=== PATIENT | female | born 1945 | race African-American/Black ===

== ENCOUNTER 2017-01-23 13:48 | Inpatient (IN) | payer MEDICARE, MEDICAID ==
[~2017-01-23] VITALS: Ht 165.1 cm; Wt 79.9 kg
[~2017-01-23 13:48] MED LIST: ACET-2708 PO; ALBU90AE IH; BUDE6HFA INH; DOCU-150 PO; FLUT16SP15 NS; HYDR25TA PO; NITR0.4T SL; PANT40TA4 PO; TOLT4CAP PO; TRAM50TA3 PO; ZET10 PO
[2017-01-23] MEDS ORDERED: ASPIRIN 81MG TABLET PO ONE (14:30)
[2017-01-23] MEDS ORDERED: NITROGLYCERIN 0.4MG TABLET SL SL PRN (14:30)
[2017-01-23 14:46] LABS: BASOPHILS % 0.7 % (0.0-2.0); EOSINOPHILS % 2.7 % (0.0-5.0); HEMATOCRIT. 31.4 % (36.0-48.0); HEMOGLOBIN. 10.7 g/dL (12.0-16.0); INR 1.1; LYMPHOCYTES % 29.7 % (20.0-50.0); MEAN CORPUSCULAR HEMOGLOBIN 31.3 pg (28.0-32.0); MEAN CORPUSCULAR VOLUME 92.3 fL (81.0-99.0); MEAN PLATELET VOLUME 7.3 fl (7.4-10.4); MONOCYTES % 7.6 % (2.0-8.0); NEUTROPHILS % 59.3 % (40.0-76.0); PLATELET 349 x1000/uL (130-400); PROTHROMBIN TIME 11.3 sec (9.4-11.6); RED BLOOD CELL COUNT 3.41 mill/uL (4.2-5.4); RED CELL DISTRIBUTION WIDTH 13.9 % (11.6-14.6)
[2017-01-23 14:57] LABS: CARBON DIOXIDE 26 mEq/L (21-32); CHLORIDE 102 mEq/L (98-107); TROPONIN I < 0.02 ng/mL (0.00-0.04)
[2017-01-23 20:00] VITALS: BP_SYST 130; BP_DIAS 47; BP_DIAS 64
[2017-01-23] MEDS ORDERED: MORPHINE SULFATE 4 MG/ML CPJ (NOT FOR IM USE) IV PRN (22:00)
[2017-01-23 23:36] LABS: TROPONIN I < 0.02 ng/mL (0.00-0.04)
[2017-01-24] VITALS: BP 143/57
[2017-01-24] MEDS: IPRATROPIUM/ALBUTEROL 0.5-3(2.5)MG/3ML NEB HHN SCH ×3 (00:34→20:26)
[2017-01-24 04:00] VITALS: BP 117/45
[2017-01-24 07:27] LABS: BASOPHILS % 0.9 % (0.0-2.0); EOSINOPHILS % 2.6 % (0.0-5.0); HEMATOCRIT. 29.9 % (36.0-48.0); LYMPHOCYTES % 40.9 % (20.0-50.0); MEAN CORPUSCULAR VOLUME 92.6 fL (81.0-99.0); MEAN PLATELET VOLUME 7.3 fl (7.4-10.4); MONOCYTES % 9.3 % (2.0-8.0); NEUTROPHILS % 46.3 % (40.0-76.0); PLATELET 324 x1000/uL (130-400); RED BLOOD CELL COUNT 3.23 mill/uL (4.2-5.4); RED CELL DISTRIBUTION WIDTH 13.9 % (11.6-14.6)
[2017-01-24 08:00] VITALS: BP 137/56
[2017-01-24] MEDS: ENOXAPARIN 40MG/0.4ML SYR SUBCUT SCH (08:31)
[2017-01-24] MEDS: ONDANSETRON HCL 4MG/2ML VIAL IV PRN (08:31)
[2017-01-24] MEDS: HYDROCHLOROTHIAZIDE 25MG TABLET PO SCH (08:32)
[2017-01-24 08:45] LABS: CARBON DIOXIDE 26 mEq/L (21-32); CHLORIDE 102 mEq/L (98-107); CREATINE KINASE MB FRACTION 1.3 ng/mL (0.5-3.6); HDL CHOLESTEROL 53 mg/dL (40-59); LDL CHOLESTEROL 129 mg/dL (5-100); TROPONIN I < 0.02 ng/mL (0.00-0.04)
[2017-01-24] MEDS ORDERED: ASPIRIN 81MG TABLET PO SCH (09:00)
[2017-01-24 12:49] VITALS: BP 114/58
[2017-01-24] MEDS ORDERED: SODIUM CHLORIDE 0.9% 1,000 ML IV SCH (14:15)
[2017-01-24 16:20] VITALS: BP 119/57
[2017-01-24 17:43] LABS: CREATINE KINASE MB FRACTION 0.7 ng/mL (0.5-3.6); TROPONIN I < 0.02 ng/mL (0.00-0.04)
[2017-01-24 20:00] VITALS: BP 103/57
[2017-01-25] VITALS: BP 125/63
[2017-01-25] MEDS: IPRATROPIUM/ALBUTEROL 0.5-3(2.5)MG/3ML NEB HHN SCH ×4 (00:49→19:45)
[2017-01-25 01:51] LABS: CREATINE KINASE MB FRACTION 0.9 ng/mL (0.5-3.6); TROPONIN I < 0.02 ng/mL (0.00-0.04)
[2017-01-25] MEDS: DIPHENHYDRAMINE 50MG/ML VIAL IM PRN ×2 (03:53→23:15)
[2017-01-25 06:00] VITALS: BP 121/53
[2017-01-25 08:00] VITALS: BP 117/58
[2017-01-25] MEDS: ENOXAPARIN 40MG/0.4ML SYR SUBCUT SCH (08:29)
[2017-01-25] MEDS: HYDROCHLOROTHIAZIDE 25MG TABLET PO SCH (08:29)
[2017-01-25] MEDS: DOCUSATE SODIUM 100MG CAPSULE PO SCH ×2 (11:43→18:19)
[2017-01-25] MEDS ORDERED: REGADENOSON 0.4 MG/5 ML IV NR (12:00)
[2017-01-25 12:15] VITALS: BP 128/52
[2017-01-25 16:23] VITALS: BP 113/60
[2017-01-25 20:00] VITALS: BP 121/68
[2017-01-26] VITALS (7 sets, daily range): BP systolic 111–135; BP diastolic 51–69
[2017-01-26] MEDS: IPRATROPIUM/ALBUTEROL 0.5-3(2.5)MG/3ML NEB HHN SCH ×3 (02:53→14:19)
[2017-01-26] MEDS ORDERED: REGADENOSON 0.4 MG/5 ML IV ONE (08:36)
[2017-01-26] MEDS: ONDANSETRON HCL 4MG/2ML VIAL IV PRN (09:49)
[2017-01-26] MEDS: DOCUSATE SODIUM 100MG CAPSULE PO SCH ×2 (09:49→17:00)
[2017-01-26] MEDS: HYDROCHLOROTHIAZIDE 25MG TABLET PO SCH (09:49)
[2017-01-26] MEDS: ENOXAPARIN 40MG/0.4ML SYR SUBCUT SCH (09:50)
== END 2017-01-26 19:05 | disposition home or self-care (01) | DRG 206 ==
LOC: ER 13:57 → 5WST 15:43 → ENRESERV 16:43
PROVIDERS: ADMIT Internal Medicine; ATTEND Internal Medicine
DX: M94.0 Chondrocostal junction syndrome [Tietze] (principal); J44.9 Chronic obstructive pulmonary disease, unspecified; I10 Essential (primary) hypertension; I25.10 Atherosclerotic heart disease of native coronary artery without angina pectoris; Z66 Do not resuscitate; D64.9 Anemia, unspecified; M54.30 Sciatica, unspecified side; M19.90 Unspecified osteoarthritis, unspecified site; E78.5 Hyperlipidemia, unspecified; G89.29 Other chronic pain; E78.00 Pure hypercholesterolemia, unspecified; Z90.710 Acquired absence of both cervix and uterus; Z82.49 Family history of ischemic heart disease and other diseases of the circulatory system; Z88.6 Allergy status to analgesic agent; Z86.73 Personal history of transient ischemic attack (TIA), and cerebral infarction without residual deficits; Z88.5 Allergy status to narcotic agent; Z88.0 Allergy status to penicillin; Z88.1 Allergy status to other antibiotic agents; Z91.041 Radiographic dye allergy status; Z79.1 Long term (current) use of non-steroidal anti-inflammatories (NSAID); Z79.899 Other long term (current) drug therapy
CPT/HCPCS: 36415; 71010; 78452; 78582; 80053; 80061; 82553; 83036; 83880; 84443; 84484; 85025; 85610; 93005; 93017; 93306; 94640; 99285; A9500; A9558; J1200; J1650; J2270; J2405; J2785; J7620

== ENCOUNTER 2017-09-02 14:31 | Emergency (ER) | payer MEDICARE, MEDICAID ==
[~2017-09-02] VITALS: Ht 162.6 cm; Wt 60.0 kg
[2017-09-02] MEDS ORDERED: MORPHINE SULFATE 4 MG/ML CPJ (NOT FOR IM USE) IV STA (15:57)
[2017-09-02] MEDS ORDERED: ONDANSETRON HCL 4MG/2ML VIAL IV STA (15:57)
[2017-09-02 16:30] LABS: CLARITY URINE CLEAR (CLEAR); COLOR URINE YELLOW (YELLOW); KETONES URINE NEGATIVE (NEGATIVE); LEUKOCYTE ESTERASE URINE NEGATIVE (NEGATIVE); NITRITE URINE NEGATIVE (NEGATIVE); OCCULT BLOOD URINE TRACE (NEGATIVE); PH URINE 6.5 (4.5-8.0); PROTEIN URINE NEGATIVE (NEGATIVE); SPECIFIC GRAVITY URINE 1.009 (1.005-1.030); UROBILINOGEN URINE 0.2 E.U./dL (0.2-1.0)
[2017-09-02 16:38] LABS: BASOPHILS % 0.9 % (0.0-2.0); EOSINOPHILS % 1.8 % (0.0-5.0); HEMATOCRIT. 29.8 % (36.0-48.0); HEMOGLOBIN. 10.2 g/dL (12.0-16.0); LYMPHOCYTES % 17.2 % (20.0-50.0); MEAN CORPUSCULAR HEMOGLOBIN 31.3 pg (28.0-32.0); MEAN CORPUSCULAR VOLUME 91.7 fL (81.0-99.0); MEAN PLATELET VOLUME 6.8 fl (7.4-10.4); MONOCYTES % 6.8 % (2.0-8.0); NEUTROPHILS % 73.3 % (40.0-76.0); PLATELET 415 x1000/uL (130-400); RED BLOOD CELL COUNT 3.25 mill/uL (4.2-5.4); RED CELL DISTRIBUTION WIDTH 13.7 % (11.6-14.6)
[2017-09-02 16:43] LABS: CHLORIDE 100 mEq/L (98-107)
[2017-09-02 16:44] LABS: INR 1.1; PROTHROMBIN TIME 11.3 sec (9.4-11.6)
[2017-09-02] MEDS ORDERED: CALCIUM GLUCONATE 100MG/ML 10ML VIAL IV ONE (21:45)
[2017-09-02] MEDS ORDERED: MAGNESIUM 2 G PREMIX 50 ML IV ONE (22:00)
[2017-09-03 00:49] VITALS: BP 142/75
== END 2017-09-03 00:51 | disposition home or self-care (01) ==
LOC: ER 14:31 → ENRESERV 23:49 → CANRESERV 23:49 → CANBEDREQ 09-03 00:30 → ER 09-03 00:51
DX: R10.84 Generalized abdominal pain (principal); E83.51 Hypocalcemia; E78.00 Pure hypercholesterolemia, unspecified; J44.9 Chronic obstructive pulmonary disease, unspecified; I10 Essential (primary) hypertension; I25.2 Old myocardial infarction; Z88.6 Allergy status to analgesic agent; Z88.8 Allergy status to other drugs, medicaments and biological substances; Z88.0 Allergy status to penicillin; Z86.73 Personal history of transient ischemic attack (TIA), and cerebral infarction without residual deficits
CPT/HCPCS: 36415; 74176; 80053; 81003; 82330; 83690; 83735; 85025; 85610; 96365; 96375; 99285; J0610; J2270; J2405; J3475

== ENCOUNTER 2017-10-20 20:58 | Emergency (ER) | payer MEDICARE, MEDICAID ==
[~2017-10-20] VITALS: Ht 154.9 cm; Wt 91.0 kg
[2017-10-20] MEDS ORDERED: HYDROCODONE/ACETAMINOPHEN 5/325MG TABLET PO STA (22:24)
[2017-10-21 04:02] VITALS: BP 133/70
== END 2017-10-21 04:15 | disposition home or self-care (01) ==
LOC: ER 20:58
DX: M79.606 Pain in leg, unspecified (principal); M79.1 Myalgia; J44.9 Chronic obstructive pulmonary disease, unspecified; I25.2 Old myocardial infarction; E78.00 Pure hypercholesterolemia, unspecified; I10 Essential (primary) hypertension; Z88.0 Allergy status to penicillin; Z88.1 Allergy status to other antibiotic agents; Z88.3 Allergy status to other anti-infective agents; Z88.6 Allergy status to analgesic agent; Z88.8 Allergy status to other drugs, medicaments and biological substances; Z86.73 Personal history of transient ischemic attack (TIA), and cerebral infarction without residual deficits; Z98.51 Tubal ligation status; Z90.710 Acquired absence of both cervix and uterus; Z91.018 Allergy to other foods
CPT/HCPCS: 72170; 73552; 73562; 73590; 99284

== ENCOUNTER 2018-03-06 01:43 | Inpatient (IN) | payer MEDICARE, MEDICAID ==
[~2018-03-06] VITALS: Ht 154.9 cm; Wt 87.6 kg
[2018-03-06] MEDS ORDERED: ACETAMINOPHEN 325MG TABLET PO ONE (06:15)
[2018-03-06 06:49] LABS: BASOPHILS % 0.4 % (0.0-2.0); EOSINOPHILS % 0.2 % (0.0-5.0); HEMATOCRIT. 32.4 % (36.0-48.0); HEMOGLOBIN. 10.8 g/dL (12.0-16.0); LYMPHOCYTES % 7.3 % (20.0-50.0); MEAN CORPUSCULAR HEMOGLOBIN 31.6 pg (28.0-32.0); MEAN CORPUSCULAR VOLUME 95.3 fL (81.0-99.0); MONOCYTES % 5.4 % (2.0-8.0); NEUTROPHILS % 86.7 % (40.0-76.0); RED CELL DISTRIBUTION WIDTH 13.8 % (11.6-14.6)
[2018-03-06 07:03] LABS: CHLORIDE 93 mEq/L (98-107)
[2018-03-06] MEDS ORDERED: LIDOCAINE HCL/PF 1% 10 MG/ML 5ML VIAL IJ ONE (08:00)
[2018-03-06] MEDS ORDERED: BACITRACIN ZINC OINT UDPKT TOP ONE (08:00)
[2018-03-06] MEDS ORDERED: TETANUS, DIPHTHERIA, PERTUSSIS VAC/PF 0.5ML (>7YR OLD) IM ONE (08:00)
[2018-03-06 09:02] LABS: PLATELET 286 x1000/uL (130-400)
[2018-03-06 09:46] LABS: CLARITY URINE CLEAR (CLEAR); COLOR URINE YELLOW (YELLOW); KETONES URINE NEGATIVE (NEGATIVE); LEUKOCYTE ESTERASE URINE NEGATIVE (NEGATIVE); NITRITE URINE NEGATIVE (NEGATIVE); OCCULT BLOOD URINE NEGATIVE (NEGATIVE); PROTEIN URINE NEGATIVE (NEGATIVE); SPECIFIC GRAVITY URINE 1.004 (1.005-1.030); UROBILINOGEN URINE 0.2 E.U./dL (0.2-1.0)
[2018-03-06] MEDS ORDERED: NEO/POLYMYX B SULF/DEXAMETH OPHTH OINT 3.5GM ONE (10:20)
[2018-03-06] MEDS ORDERED: PREDNISOLONE ACETATE 1% OPHTH DROPS 1ML ONE (10:20)
[2018-03-06] MEDS ORDERED: BUPIVACAINE HCL/PF 0.75% (7.5MG/ML) 10ML ONE (10:20)
[2018-03-06] MEDS ORDERED: CIPROFLOXACIN 0.3% OPHTH SOLN 2.5ML ONE (10:20)
[2018-03-06] MEDS ORDERED: BALANCED SALT IRRIG SOLN 15ML ONE (10:20)
[2018-03-06] MEDS ORDERED: TETRACAINE 0.5% OPHTH DROPS 4ML ONE (10:20)
[2018-03-06] MEDS ORDERED: LIDOCAINE HCL 2%/EPINEPHRINE 1:100,000 20 ML VIAL INFIL ONE (10:20)
[2018-03-06 12:00] VITALS: BP 128/74
[2018-03-06 12:03] VITALS: BP 119/66
[2018-03-06 12:05] VITALS: BP 131/52
[2018-03-06] MEDS ORDERED: MAGNESIUM/ALUMINUM HYDROXIDE/SIMETHICONE 30ML UDC PO PRN (12:45)
[2018-03-06] MEDS ORDERED: ONDANSETRON HCL 4MG/2ML INJ IV PRN ×2 (12:45→13:45)
[2018-03-06] MEDS ORDERED: IPRATROPIUM/ALBUTEROL 0.5-3(2.5)MG/3ML NEB INH PRN (12:45)
[2018-03-06] MEDS ORDERED: CLONIDINE 0.1MG TABLET PO PRN (12:45)
[2018-03-06] MEDS ORDERED: TRAMADOL 50MG TABLET PO PRN (12:45)
[2018-03-06] MEDS ORDERED: HYDROMORPHONE HCL/PF 2MG/ML CPJ IV PRN (13:45)
[2018-03-06] MEDS ORDERED: MIDAZOLAM HCL 2 MG/2 ML VIAL ONE (14:05)
[2018-03-06] MEDS ORDERED: FENTANYL CITRATE/PF 50MCG/ML 2ML VIAL ONE (14:05)
[2018-03-06] MEDS ORDERED: PROPOFOL 200MG/20ML VIAL IV ONE (14:06)
[2018-03-06 16:00] VITALS: BP_SYST 144; BP_SYST 147; BP_DIAS 66
[2018-03-06] MEDS ORDERED: MORPHINE SULFATE 4 MG/ML CPJ (NOT FOR IM USE) IV PRN (17:30)
[2018-03-06] MEDS ORDERED: IPRATROPIUM/ALBUTEROL 0.5-3(2.5)MG/3ML NEB HHN PRN (18:00)
[2018-03-06] MEDS ORDERED: MEDICATION NOT ON FORMULARY EA (Pantoprazole Sodium 1 TAB) PO SCH (18:00)
[2018-03-06] MEDS ORDERED: EZETIMIBE 10MG TABLET PO SCH (18:00)
[2018-03-06] MEDS ORDERED: TOLTERODINE TARTRATE PO SCH (18:00)
[2018-03-06] MEDS ORDERED: HYDROCHLOROTHIAZIDE 25MG TABLET PO SCH (18:00)
[2018-03-06] MEDS: OXYBUTYNIN CHLORIDE 5MG TABLET PO SCH (18:57)
[2018-03-06] MEDS: EZETIMIBE 10MG TABLET PO SCH (18:58)
[2018-03-06] MEDS: PANTOPRAZOLE SODIUM 40 MG/VIAL IV SCH (18:58)
[2018-03-06] MEDS: HYDROCHLOROTHIAZIDE 25MG TABLET PO SCH (18:58)
[2018-03-06] MEDS: ENOXAPARIN 40MG/0.4ML SYR SUBCUT SCH (18:59)
[2018-03-06] MEDS: SODIUM CHLORIDE 0.9% INJ 3ML FLUSH IVF SCH ×2 (19:04→20:58)
[2018-03-06 20:00] VITALS: BP 127/47
[2018-03-06] MEDS: IPRATROPIUM/ALBUTEROL 0.5-3(2.5)MG/3ML NEB HHN SCH (20:30)
[2018-03-06] MEDS: ACETAMINOPHEN 325MG TABLET PO SCH (20:58)
[2018-03-06] MEDS ORDERED: PNEUMOCOCCAL 23-VAL P-SAC VAC 0.5 ML IM ONE (21:30)
[2018-03-07] VITALS (9 sets, daily range): BP systolic 106–129; BP diastolic 50–66
[2018-03-07] MEDS: IPRATROPIUM/ALBUTEROL 0.5-3(2.5)MG/3ML NEB HHN SCH ×4 (02:30→20:56)
[2018-03-07] MEDS: SODIUM CHLORIDE 0.9% INJ 3ML FLUSH IVF SCH ×3 (06:34→21:30)
[2018-03-07 07:04] LABS: BASOPHILS % 0.5 % (0.0-2.0); HEMATOCRIT. 27.2 % (36.0-48.0); HEMOGLOBIN. 9.4 g/dL (12.0-16.0); LYMPHOCYTES % 15.7 % (20.0-50.0); MEAN CORPUSCULAR HEMOGLOBIN 32.8 pg (28.0-32.0); MEAN CORPUSCULAR VOLUME 94.7 fL (81.0-99.0); MEAN PLATELET VOLUME 6.7 fl (7.4-10.4); MONOCYTES % 7.6 % (2.0-8.0); NEUTROPHILS % 75.2 % (40.0-76.0); PLATELET 317 x1000/uL (130-400); RED BLOOD CELL COUNT 2.88 mill/uL (4.2-5.4)
[2018-03-07 07:32] LABS: CHLORIDE 96 mEq/L (98-107)
[2018-03-07] MEDS: BUDESONIDE 0.5MG/2ML NEB HHN SCH ×2 (08:12→20:56)
[2018-03-07] MEDS: OXYBUTYNIN CHLORIDE 5MG TABLET PO SCH ×3 (09:08→18:23)
[2018-03-07] MEDS: EZETIMIBE 10MG TABLET PO SCH (09:08)
[2018-03-07] MEDS: HYDROCHLOROTHIAZIDE 25MG TABLET PO SCH (09:09)
[2018-03-07] MEDS: ACETAMINOPHEN 325MG TABLET PO SCH ×3 (09:11→18:24)
[2018-03-07] MEDS: PANTOPRAZOLE SODIUM 40 MG/VIAL IV SCH (09:25)
[2018-03-07] MEDS: GENTAMICIN 0.3% OPHTH DROPS 5ML LEFTEYE SCH ×4 (11:49→23:59)
[2018-03-07] MEDS ORDERED: POTASSIUM CHLORIDE 20MEQ TABLET SR PO SCH (12:15)
[2018-03-07] MEDS: NEO/POLYMYX B SULF/DEXAMETH OPHTH OINT 3.5GM LEFTEYE SCH ×2 (14:23→22:13)
[2018-03-07] MEDS: ENOXAPARIN 40MG/0.4ML SYR SUBCUT SCH (14:25)
[2018-03-08] VITALS (7 sets, daily range): BP systolic 98–143; BP diastolic 43–71
[2018-03-08] MEDS: IPRATROPIUM/ALBUTEROL 0.5-3(2.5)MG/3ML NEB HHN SCH ×4 (02:05→19:36)
[2018-03-08] MEDS: SODIUM CHLORIDE 0.9% INJ 3ML FLUSH IVF SCH ×3 (05:53→21:04)
[2018-03-08] MEDS: GENTAMICIN 0.3% OPHTH DROPS 5ML LEFTEYE SCH ×5 (05:53→20:00)
[2018-03-08] MEDS: NEO/POLYMYX B SULF/DEXAMETH OPHTH OINT 3.5GM LEFTEYE SCH ×2 (06:05→14:25)
[2018-03-08 07:09] LABS: BASOPHILS % 0.8 % (0.0-2.0); EOSINOPHILS % 4.3 % (0.0-5.0); HEMATOCRIT. 26.6 % (36.0-48.0); HEMOGLOBIN. 9.2 g/dL (12.0-16.0); LYMPHOCYTES % 25.3 % (20.0-50.0); MEAN CORPUSCULAR HEMOGLOBIN 32.2 pg (28.0-32.0); MEAN CORPUSCULAR VOLUME 93.3 fL (81.0-99.0); MEAN PLATELET VOLUME 6.9 fl (7.4-10.4); NEUTROPHILS % 59.6 % (40.0-76.0); PLATELET 322 x1000/uL (130-400); RED BLOOD CELL COUNT 2.86 mill/uL (4.2-5.4); RED CELL DISTRIBUTION WIDTH 13.2 % (11.6-14.6)
[2018-03-08] MEDS: BUDESONIDE 0.5MG/2ML NEB HHN SCH ×3 (07:30→20:00)
[2018-03-08] MEDS: ACETAMINOPHEN 325MG TABLET PO SCH ×3 (09:00→19:15)
[2018-03-08] MEDS: EZETIMIBE 10MG TABLET PO SCH (09:05)
[2018-03-08] MEDS: OXYBUTYNIN CHLORIDE 5MG TABLET PO SCH ×3 (09:05→18:41)
[2018-03-08] MEDS: HYDROCHLOROTHIAZIDE 25MG TABLET PO SCH (09:05)
[2018-03-08] MEDS: PANTOPRAZOLE SODIUM 40 MG/VIAL IV SCH (09:06)
[2018-03-08] MEDS: ENOXAPARIN 40MG/0.4ML SYR SUBCUT SCH (14:25)
[2018-03-09] VITALS (9 sets, daily range): BP systolic 100–153; BP diastolic 50–100
[2018-03-09] MEDS: IPRATROPIUM/ALBUTEROL 0.5-3(2.5)MG/3ML NEB HHN SCH ×4 (00:38→20:00)
[2018-03-09] MEDS: NEO/POLYMYX B SULF/DEXAMETH OPHTH OINT 3.5GM LEFTEYE SCH ×4 (06:50→21:08)
[2018-03-09] MEDS: GENTAMICIN 0.3% OPHTH DROPS 5ML LEFTEYE SCH ×7 (06:51→23:29)
[2018-03-09] MEDS: SODIUM CHLORIDE 0.9% INJ 3ML FLUSH IVF SCH ×3 (06:53→21:08)
[2018-03-09 07:23] LABS: BASOPHILS % 0.8 % (0.0-2.0); EOSINOPHILS % 6.7 % (0.0-5.0); HEMATOCRIT. 27.2 % (36.0-48.0); HEMOGLOBIN. 9.3 g/dL (12.0-16.0); LYMPHOCYTES % 23.7 % (20.0-50.0); MEAN CORPUSCULAR HEMOGLOBIN 32.2 pg (28.0-32.0); MEAN CORPUSCULAR VOLUME 94.4 fL (81.0-99.0); MEAN PLATELET VOLUME 6.8 fl (7.4-10.4); MONOCYTES % 12.2 % (2.0-8.0); NEUTROPHILS % 56.6 % (40.0-76.0); PLATELET 334 x1000/uL (130-400); RED BLOOD CELL COUNT 2.88 mill/uL (4.2-5.4); RED CELL DISTRIBUTION WIDTH 13.6 % (11.6-14.6)
[2018-03-09] MEDS: ACETAMINOPHEN 325MG TABLET PO SCH ×3 (09:00→18:35)
[2018-03-09] MEDS: BUDESONIDE 0.5MG/2ML NEB HHN SCH (09:13)
[2018-03-09] MEDS: PANTOPRAZOLE SODIUM 40 MG/VIAL IV SCH (10:14)
[2018-03-09] MEDS: EZETIMIBE 10MG TABLET PO SCH (10:14)
[2018-03-09] MEDS: OXYBUTYNIN CHLORIDE 5MG TABLET PO SCH ×3 (10:14→18:35)
[2018-03-09] MEDS: ENOXAPARIN 40MG/0.4ML SYR SUBCUT SCH (14:11)
[2018-03-09] MEDS ORDERED: GUAIFENESIN-DM 200MG-20MG/10ML UDC PO PRN (16:30)
[2018-03-10] VITALS (7 sets, daily range): BP systolic 109–130; BP diastolic 52–65
[2018-03-10] MEDS: IPRATROPIUM/ALBUTEROL 0.5-3(2.5)MG/3ML NEB HHN SCH ×3 (01:08→14:17)
[2018-03-10] MEDS: GENTAMICIN 0.3% OPHTH DROPS 5ML LEFTEYE SCH ×4 (05:01→16:17)
[2018-03-10] MEDS: SODIUM CHLORIDE 0.9% INJ 3ML FLUSH IVF SCH ×2 (05:31→14:39)
[2018-03-10] MEDS: NEO/POLYMYX B SULF/DEXAMETH OPHTH OINT 3.5GM LEFTEYE SCH ×2 (05:32→14:00)
[2018-03-10 07:41] LABS: BASOPHILS % 1.1 % (0.0-2.0); EOSINOPHILS % 8.5 % (0.0-5.0); HEMATOCRIT. 26.4 % (36.0-48.0); HEMOGLOBIN. 9.2 g/dL (12.0-16.0); LYMPHOCYTES % 30.6 % (20.0-50.0); MEAN CORPUSCULAR HEMOGLOBIN 32.5 pg (28.0-32.0); MEAN CORPUSCULAR VOLUME 93.4 fL (81.0-99.0); MEAN PLATELET VOLUME 6.7 fl (7.4-10.4); MONOCYTES % 14.5 % (2.0-8.0); NEUTROPHILS % 45.3 % (40.0-76.0); PLATELET 365 x1000/uL (130-400); RED BLOOD CELL COUNT 2.83 mill/uL (4.2-5.4); RED CELL DISTRIBUTION WIDTH 13.6 % (11.6-14.6)
[2018-03-10] MEDS: OXYBUTYNIN CHLORIDE 5MG TABLET PO SCH ×2 (08:29→13:00)
[2018-03-10] MEDS: PANTOPRAZOLE SODIUM 40 MG/VIAL IV SCH (08:29)
[2018-03-10] MEDS: ACETAMINOPHEN 325MG TABLET PO SCH ×2 (08:29→13:00)
[2018-03-10] MEDS: EZETIMIBE 10MG TABLET PO SCH (09:00)
[2018-03-10] MEDS: ENOXAPARIN 40MG/0.4ML SYR SUBCUT SCH (14:00)
== END 2018-03-10 16:51 | disposition home or self-care (01) | DRG 124 ==
LOC: ER 01:43 → ENRESERV 11:09 → 6WST 13:11
PROVIDERS: ADMIT Specialist; ATTEND Specialist
PROC: 08QPXZZ Repair Left Upper Eyelid, External Approach (ICD-10-PCS; principal; 2018-03-06 14:00)
DX: S05.32XA Ocular laceration without prolapse or loss of intraocular tissue, left eye, initial encounter (principal); N17.0 Acute kidney failure with tubular necrosis; E87.1 Hypo-osmolality and hyponatremia; I69.354 Hemiplegia and hemiparesis following cerebral infarction affecting left non-dominant side; M54.30 Sciatica, unspecified side; E78.5 Hyperlipidemia, unspecified; E87.6 Hypokalemia; D64.9 Anemia, unspecified; I11.0 Hypertensive heart disease with heart failure; J44.9 Chronic obstructive pulmonary disease, unspecified; M19.90 Unspecified osteoarthritis, unspecified site
CPT/HCPCS: 12011; 36415; 70486; 71045; 80048; 82533; 83880; 83930; 84484; 90471; 90715; 93005; 93306; 93970; 94640; 97162; 99285; C9113; J1650; J2250; J2704; J3010; J3490; J7620; J7626

== ENCOUNTER 2018-04-11 22:03 | Emergency (ER) | payer MEDICARE, MEDICAID ==
[~2018-04-11] VITALS: Ht 154.9 cm; Wt 84.0 kg
[~2018-04-11 22:03] MED LIST changes: -HYDR25TA PO
[2018-04-12] MEDS ORDERED: SODIUM CHLORIDE 0.9% 1,000 ML IV ONE (00:14)
[2018-04-12] MEDS ORDERED: ACETAMINOPHEN 325MG TABLET PO STA (00:14)
[2018-04-12 01:31] LABS: BASOPHILS % 0.8 % (0.0-2.0); EOSINOPHILS % 3.2 % (0.0-5.0); HEMOGLOBIN. 10.5 g/dL (12.0-16.0); LYMPHOCYTES % 23.8 % (20.0-50.0); MEAN CORPUSCULAR HEMOGLOBIN 32.4 pg (28.0-32.0); MEAN CORPUSCULAR VOLUME 95.2 fL (81.0-99.0); MEAN PLATELET VOLUME 7.5 fl (7.4-10.4); NEUTROPHILS % 65.2 % (40.0-76.0); PLATELET 335 x1000/uL (130-400); RED BLOOD CELL COUNT 3.25 mill/uL (4.2-5.4); RED CELL DISTRIBUTION WIDTH 14.7 % (11.6-14.6)
[2018-04-12 01:36] LABS: CHLORIDE 107 mEq/L (98-107)
[2018-04-12 03:20] VITALS: BP 139/60
== END 2018-04-12 03:40 | disposition home or self-care (01) ==
LOC: ER 22:03
DX: S06.0X9A Concussion with loss of consciousness of unspecified duration, initial encounter (principal); R51 Headache; R42 Dizziness and giddiness; I69.354 Hemiplegia and hemiparesis following cerebral infarction affecting left non-dominant side; I25.2 Old myocardial infarction; I50.9 Heart failure, unspecified; R94.31 Abnormal electrocardiogram [ECG] [EKG]; Z88.0 Allergy status to penicillin; Z88.5 Allergy status to narcotic agent; Z88.6 Allergy status to analgesic agent; Z91.041 Radiographic dye allergy status; Z91.018 Allergy to other foods; Z98.42 Cataract extraction status, left eye; X58.XXXA Exposure to other specified factors, initial encounter; Y93.89 Activity, other specified; Y92.89 Other specified places as the place of occurrence of the external cause
CPT/HCPCS: 36415; 70450; 80048; 84484; 85025; 93005; 96360; 96361; 99284; J7030

== ENCOUNTER 2018-06-01 17:46 | Inpatient (IN) | payer MEDICARE, MEDICAID ==
[~2018-06-01] VITALS: Ht 154.9 cm; Wt 83.5 kg
[2018-06-01 19:05] LABS: BASOPHILS % 0.5 % (0.0-2.0); EOSINOPHILS % 2.3 % (0.0-5.0); HEMATOCRIT. 31.6 % (36.0-48.0); HEMOGLOBIN. 10.5 g/dL (12.0-16.0); LYMPHOCYTES % 22.7 % (20.0-50.0); MEAN CORPUSCULAR HEMOGLOBIN 32.3 pg (28.0-32.0); MEAN PLATELET VOLUME 7.6 fl (7.4-10.4); MONOCYTES % 6.7 % (2.0-8.0); NEUTROPHILS % 67.8 % (40.0-76.0); PLATELET 304 x1000/uL (130-400); RED BLOOD CELL COUNT 3.26 mill/uL (4.2-5.4); RED CELL DISTRIBUTION WIDTH 15.7 % (11.6-14.6)
[2018-06-01 19:10] LABS: CHLORIDE 108 mEq/L (98-107)
[2018-06-01 19:11] LABS: INR 1.1; PARTIAL THROMBOPLASTIN TIME 25.5 sec (23.4-31.0); PROTHROMBIN TIME 10.7 sec (9.1-11.1)
[2018-06-01 19:15] LABS: ETHANOL BLOOD < 10 mg/dL
[2018-06-01 19:29] LABS: CLARITY URINE CLEAR (CLEAR); COLOR URINE YELLOW (YELLOW); KETONES URINE NEGATIVE (NEGATIVE); LEUKOCYTE ESTERASE URINE NEGATIVE (NEGATIVE); NITRITE URINE NEGATIVE (NEGATIVE); OCCULT BLOOD URINE TRACE (NEGATIVE); PH URINE 5.5 (4.5-8.0); PROTEIN URINE NEGATIVE (NEGATIVE); UROBILINOGEN URINE 0.2 E.U./dL (0.2-1.0)
[2018-06-01 19:48] LABS: *AMPHETAMINES SCREEN URINE NEGATIVE (NEGATIVE); *BARBITURATES SCREEN URINE NEGATIVE (NEGATIVE); *BENZODIAZEPINES SCREEN URINE NEGATIVE (NEGATIVE); *COCAINE SCREEN URINE NEGATIVE (NEGATIVE)
[2018-06-01 19:49] LABS: CANNABINOID URINE SCREEN NEGATIVE (NEGATIVE); METHADONE URINE SCREEN NEGATIVE (NEGATIVE); OPIATES URINE SCREEN NEGATIVE (NEGATIVE); PHENCYCLIDINE URINE SCREEN NEGATIVE (NEGATIVE)
[2018-06-01] MEDS ORDERED: MAGNESIUM 2 G PREMIX 50 ML IV ONE (20:00)
[2018-06-02] MEDS ORDERED: ACETAMINOPHEN 500MG TABLET PO ONE (01:30)
[2018-06-02 09:53] VITALS: BP 145/70
[2018-06-02 12:00] VITALS: BP 122/56
[2018-06-02] MEDS ORDERED: PNEUMOCOCCAL 23-VAL P-SAC VAC 0.5 ML IM ONE (15:00)
[2018-06-02] MEDS ORDERED: PANTOPRAZOLE 40MG DR TABLET PO SCH (15:15)
[2018-06-02] MEDS ORDERED: IPRATROPIUM/ALBUTEROL 0.5-3(2.5)MG/3ML NEB HHN PRN (15:15)
[2018-06-02] MEDS ORDERED: ONDANSETRON HCL 4MG/2ML INJ IV PRN (15:30)
[2018-06-02] MEDS ORDERED: ACETAMINOPHEN 325MG TABLET PO PRN (15:30)
[2018-06-02 16:00] VITALS: BP 122/56
[2018-06-02 20:00] VITALS: BP 128/59
[2018-06-02] MEDS: SODIUM CHLORIDE 0.45% 1,000 ML IV SCH (21:00)
[2018-06-03] VITALS: BP 136/67
[2018-06-03] MEDS ORDERED: PANT40TA4 PO (02:11)
[2018-06-03] MEDS ORDERED: ZET10 PO (02:11)
[2018-06-03] MEDS ORDERED: ALBU90AE IH (02:11)
[2018-06-03] MEDS ORDERED: NITR0.4T SL (02:11)
[2018-06-03] MEDS ORDERED: ACET-2708 PO (02:11)
[2018-06-03] MEDS ORDERED: DOCU250C69 PO (02:11)
[2018-06-03] MEDS ORDERED: BUDE6HFA INH (02:11)
[2018-06-03] MEDS ORDERED: TRAM50TA3 PO (02:11)
[2018-06-03] MEDS ORDERED: DOXA4TAB3 PO (02:11)
[2018-06-03] MEDS ORDERED: TOLT1TAB12 PO (02:11)
[2018-06-03] MEDS: IPRATROPIUM/ALBUTEROL 0.5-3(2.5)MG/3ML NEB HHN SCH ×3 (02:24→14:43)
[2018-06-03 04:00] VITALS: BP 140/64
[2018-06-03 06:57] LABS: HEMATOCRIT. 33.8 % (36.0-48.0); HEMOGLOBIN. 11.1 g/dL (12.0-16.0); MEAN CORPUSCULAR HEMOGLOBIN 32.1 pg (28.0-32.0); MEAN CORPUSCULAR VOLUME 97.5 fL (81.0-99.0); PLATELET 343 x1000/uL (130-400); RED BLOOD CELL COUNT 3.47 mill/uL (4.2-5.4); RED CELL DISTRIBUTION WIDTH 15.5 % (11.6-14.6)
[2018-06-03] MEDS ORDERED: NON FORMULARY PATIENT HOME MED OP SCH (09:00)
[2018-06-03] MEDS ORDERED: NON FORMULARY PATIENT HOME MED PO SCH (09:00)
[2018-06-03] MEDS ORDERED: NAPHAZOLINE HCL/PHENIR MAL OPHTH SOLN 15ML BOTHEYE SCH (09:00)
[2018-06-03] MEDS ORDERED: EZETIMIBE 10MG TABLET PO SCH (09:00)
[2018-06-03] MEDS ORDERED: PANTOPRAZOLE SODIUM 40 MG/VIAL IV SCH (09:00)
[2018-06-03] MEDS: OXYBUTYNIN CHLORIDE 5MG TABLET PO SCH ×2 (09:10→12:28)
[2018-06-03 12:00] VITALS: BP 128/70
[2018-06-03] MEDS: SODIUM CHLORIDE 0.45% 1,000 ML IV SCH (12:27)
[2018-06-03] MEDS ORDERED: METOCLOPRAMIDE HCL 10MG/2ML VIAL IV SCH (12:45)
[2018-06-03 13:53] LABS: ATYPICAL LYMPHOCYTES 2
[2018-06-03 13:54] LABS: PLATELET ESTIMATE NORMAL
[2018-06-03 15:40] VITALS: BP 128/70
[2018-06-03 16:00] VITALS: BP 114/65
== END 2018-06-03 17:07 | disposition home or self-care (01) | DRG 394 ==
LOC: ER 17:46 → 7WST 20:20 → ENRESERV 06-02 07:20
PROVIDERS: ADMIT Internal Medicine; ATTEND Internal Medicine
DX: K46.9 Unspecified abdominal hernia without obstruction or gangrene (principal); E44.1 Mild protein-calorie malnutrition; K57.30 Diverticulosis of large intestine without perforation or abscess without bleeding; J44.9 Chronic obstructive pulmonary disease, unspecified; I25.10 Atherosclerotic heart disease of native coronary artery without angina pectoris; I50.9 Heart failure, unspecified; I11.0 Hypertensive heart disease with heart failure; R42 Dizziness and giddiness; E83.42 Hypomagnesemia; E11.9 Type 2 diabetes mellitus without complications; D64.9 Anemia, unspecified; Z90.710 Acquired absence of both cervix and uterus; Z86.73 Personal history of transient ischemic attack (TIA), and cerebral infarction without residual deficits; Z88.8 Allergy status to other drugs, medicaments and biological substances; Z88.6 Allergy status to analgesic agent; Z88.1 Allergy status to other antibiotic agents; Z88.5 Allergy status to narcotic agent; Z88.0 Allergy status to penicillin; Z91.018 Allergy to other foods; Z91.048 Other nonmedicinal substance allergy status; Z79.899 Other long term (current) drug therapy; Z68.34 Body mass index [BMI] 34.0-34.9, adult
CPT/HCPCS: 36415; 71045; 74176; 80048; 80305; 82728; 83540; 83550; 83735; 83880; 84484; 85007; 85027; 93005; 94640; 96365; 99285; C9113; G0482; J2405; J2765; J3475; J7620

== ENCOUNTER 2018-07-03 10:33 | Inpatient (IN) | payer MEDICARE, MEDICAID ==
[~2018-07-03] VITALS: Ht 167.6 cm; Wt 82.1 kg
[~2018-07-03 10:33] MED LIST changes: -DOCU-150 PO; +DOCU250C69 PO; +DOXA4TAB3 PO; -FLUT16SP15 NS; +TOLT1TAB12 PO; -TOLT4CAP PO
[2018-07-03] MEDS ORDERED: MORPHINE SULFATE 4 MG/ML CPJ (NOT FOR IM USE) IV STA (10:53)
[2018-07-03] MEDS ORDERED: ONDANSETRON HCL 4MG/2ML INJ IV STA (10:53)
[2018-07-03 11:43] LABS: EOSINOPHILS % 3.7 % (0.0-5.0); HEMATOCRIT. 30.6 % (36.0-48.0); HEMOGLOBIN. 10.4 g/dL (12.0-16.0); LYMPHOCYTES % 32.4 % (20.0-50.0); MEAN CORPUSCULAR HEMOGLOBIN 33.5 pg (28.0-32.0); MEAN CORPUSCULAR VOLUME 98.2 fL (81.0-99.0); MONOCYTES % 7.5 % (2.0-8.0); NEUTROPHILS % 55.4 % (40.0-76.0); PLATELET 320 x1000/uL (130-400); RED BLOOD CELL COUNT 3.11 mill/uL (4.2-5.4); RED CELL DISTRIBUTION WIDTH 14.8 % (11.6-14.6)
[2018-07-03 11:49] LABS: CHLORIDE 105 mEq/L (98-107)
[2018-07-03 11:51] LABS: INR 1.1; PROTHROMBIN TIME 10.9 sec (9.1-11.1)
[2018-07-03 11:53] LABS: ETHANOL BLOOD < 10 mg/dL
[2018-07-03] MEDS ORDERED: TRAMADOL 50MG TABLET PO ONE (13:30)
[2018-07-03 13:40] LABS: CLARITY URINE CLEAR (CLEAR); COLOR URINE YELLOW (YELLOW); KETONES URINE NEGATIVE (NEGATIVE); LEUKOCYTE ESTERASE URINE TRACE (NEGATIVE); NITRITE URINE NEGATIVE (NEGATIVE); OCCULT BLOOD URINE NEGATIVE (NEGATIVE); PH URINE 6.5 (4.5-8.0); PROTEIN URINE NEGATIVE (NEGATIVE); SPECIFIC GRAVITY URINE 1.014 (1.005-1.030); UROBILINOGEN URINE 0.2 E.U./dL (0.2-1.0)
[2018-07-03] MEDS ORDERED: ONDANSETRON HCL 4MG/2ML INJ IV ONE (14:30)
[2018-07-03 16:11] VITALS: BP 157/64
[2018-07-03] MEDS ORDERED: HYDROCODONE/ACETAMINOPHEN 5/325MG TABLET PO PRN (16:45)
[2018-07-03] MEDS ORDERED: ACETAMINOPHEN 325MG TABLET PO PRN (16:45)
[2018-07-03] MEDS ORDERED: IPRATROPIUM/ALBUTEROL 0.5-3(2.5)MG/3ML NEB HHN PRN (16:45)
[2018-07-03 17:22] VITALS: BP 157/74
[2018-07-03] MEDS ORDERED: MEDICATION NOT ON FORMULARY EA (Docusate Sodium 250 MG) PO SCH (17:45)
[2018-07-03] MEDS ORDERED: NITROGLYCERIN 0.4 MG SL SCH (17:45)
[2018-07-03] MEDS: TRAMADOL 50MG TABLET PO PRN (18:00)
[2018-07-03] MEDS ORDERED: DOCUSATE SODIUM 250MG CAPSULE PO PRN (18:45)
[2018-07-03] MEDS ORDERED: NITROGLYCERIN 0.4MG TABLET SL SL PRN (19:00)
[2018-07-03 20:00] VITALS: BP 124/63
[2018-07-03] MEDS: OXYBUTYNIN CHLORIDE 5MG TABLET PO SCH (20:50)
[2018-07-04] VITALS (7 sets, daily range): BP systolic 99–132; BP diastolic 45–66
[2018-07-04] MEDS: PANTOPRAZOLE 40MG DR TABLET PO SCH ×2 (05:43→10:16)
[2018-07-04] MEDS: TRAMADOL 50MG TABLET PO PRN ×2 (05:45→12:51)
[2018-07-04 07:35] LABS: BASOPHILS % 0.7 % (0.0-2.0); EOSINOPHILS % 3.2 % (0.0-5.0); HEMATOCRIT. 30.5 % (36.0-48.0); HEMOGLOBIN. 10.3 g/dL (12.0-16.0); LYMPHOCYTES % 35.8 % (20.0-50.0); MEAN CORPUSCULAR HEMOGLOBIN 33.2 pg (28.0-32.0); MEAN CORPUSCULAR VOLUME 98.2 fL (81.0-99.0); MEAN PLATELET VOLUME 7.8 fl (7.4-10.4); NEUTROPHILS % 50.3 % (40.0-76.0); PLATELET 267 x1000/uL (130-400); RED BLOOD CELL COUNT 3.11 mill/uL (4.2-5.4); RED CELL DISTRIBUTION WIDTH 14.7 % (11.6-14.6)
[2018-07-04] MEDS ORDERED: MEDICATION NOT ON FORMULARY EA (Budesonide/Formoterol Fumarate (Symbicort 160/4.5 Mcg In INH SCH (09:00)
[2018-07-04] MEDS ORDERED: DOXAZOSIN MESYLATE 4 MG PO SCH (09:00)
[2018-07-04] MEDS ORDERED: MEDICATION NOT ON FORMULARY EA (Pantoprazole Sodium 40 MG) PO SCH (09:00)
[2018-07-04] MEDS ORDERED: TOLTERODINE TARTRATE 1 MG PO SCH (09:00)
[2018-07-04] MEDS ORDERED: MEDICATION NOT ON FORMULARY EA (Albuterol Sulfate (Proair Respiclick) 90 MCG) IH SCH (09:00)
[2018-07-04] MEDS: EZETIMIBE 10MG TABLET PO SCH (09:53)
[2018-07-04] MEDS: OXYBUTYNIN CHLORIDE 5MG TABLET PO SCH ×2 (09:54→16:59)
[2018-07-04] MEDS: DOXAZOSIN MESYLATE 4MG TABLET PO SCH (09:54)
[2018-07-04] MEDS: BUDESONIDE 0.5MG/2ML NEB HHN SCH ×2 (10:08→20:52)
[2018-07-04] MEDS: ALBUTEROL (0.083%) 2.5MG/3ML NEB HHN SCH ×3 (10:11→20:52)
[2018-07-04] MEDS: ENOXAPARIN 40MG/0.4ML SYR SUBCUT SCH (17:04)
[2018-07-05] VITALS (7 sets, daily range): BP systolic 106–138; BP diastolic 45–67
[2018-07-05] MEDS: ALBUTEROL (0.083%) 2.5MG/3ML NEB HHN SCH ×4 (01:16→20:39)
[2018-07-05] MEDS: DOXAZOSIN MESYLATE 4MG TABLET PO SCH (09:17)
[2018-07-05] MEDS: OXYBUTYNIN CHLORIDE 5MG TABLET PO SCH ×2 (09:17→17:59)
[2018-07-05] MEDS: EZETIMIBE 10MG TABLET PO SCH (09:17)
[2018-07-05] MEDS: PANTOPRAZOLE 40MG DR TABLET PO SCH (09:18)
[2018-07-05] MEDS: BUDESONIDE 0.5MG/2ML NEB HHN SCH ×2 (09:36→20:39)
[2018-07-05] MEDS: ENOXAPARIN 40MG/0.4ML SYR SUBCUT SCH (15:58)
[2018-07-06] MEDS: ALBUTEROL (0.083%) 2.5MG/3ML NEB HHN SCH ×2 (02:01→09:05)
[2018-07-06 04:06] VITALS: BP 115/64
[2018-07-06 08:00] VITALS: BP 144/57
[2018-07-06] MEDS: DOXAZOSIN MESYLATE 4MG TABLET PO SCH (08:06)
[2018-07-06] MEDS: EZETIMIBE 10MG TABLET PO SCH (08:06)
[2018-07-06] MEDS: OXYBUTYNIN CHLORIDE 5MG TABLET PO SCH (08:06)
[2018-07-06] MEDS: BUDESONIDE 0.5MG/2ML NEB HHN SCH (08:53)
[2018-07-06 09:43] VITALS: BP 144/57
== END 2018-07-06 10:55 | disposition home or self-care (01) | DRG 305 ==
LOC: ER 10:51 → 6WST 13:21 → EDBEDREQ 13:24 → ENRESERV 14:27
PROVIDERS: ADMIT Internal Medicine; ATTEND Internal Medicine
DX: I16.0 Hypertensive urgency (principal); E44.1 Mild protein-calorie malnutrition; E11.9 Type 2 diabetes mellitus without complications; J44.9 Chronic obstructive pulmonary disease, unspecified; I11.0 Hypertensive heart disease with heart failure; I50.9 Heart failure, unspecified; E78.00 Pure hypercholesterolemia, unspecified; Z88.9 Allergy status to unspecified drugs, medicaments and biological substances; Z88.6 Allergy status to analgesic agent; Z88.8 Allergy status to other drugs, medicaments and biological substances; Z88.1 Allergy status to other antibiotic agents; Z88.0 Allergy status to penicillin; Z91.010 Allergy to peanuts; Z91.013 Allergy to seafood; Z86.73 Personal history of transient ischemic attack (TIA), and cerebral infarction without residual deficits; Z79.1 Long term (current) use of non-steroidal anti-inflammatories (NSAID); Z79.51 Long term (current) use of inhaled steroids; Z79.899 Other long term (current) drug therapy
CPT/HCPCS: 36415; 70544; 70553; 71045; 80048; 83880; 84484; 85651; 93005; 94640; 96374; 96375; 99285; J1650; J2270; J2405; J7611; J7620; J7626

== ENCOUNTER 2018-08-13 12:10 | Emergency (ER) | payer MEDICARE, MEDICAID ==
[~2018-08-13] VITALS: Ht 154.9 cm; Wt 84.0 kg
[2018-08-13] MEDS ORDERED: METOCLOPRAMIDE HCL 10MG/2ML VIAL IV ONE (14:15)
[2018-08-13] MEDS ORDERED: DIPHENHYDRAMINE 50MG/ML VIAL IV ONE (14:15)
[2018-08-13 14:26] LABS: CLARITY URINE CLEAR (CLEAR); COLOR URINE YELLOW (YELLOW); KETONES URINE NEGATIVE (NEGATIVE); LEUKOCYTE ESTERASE URINE NEGATIVE (NEGATIVE); NITRITE URINE NEGATIVE (NEGATIVE); OCCULT BLOOD URINE NEGATIVE (NEGATIVE); PH URINE 5.5 (4.5-8.0); PROTEIN URINE NEGATIVE (NEGATIVE); SPECIFIC GRAVITY URINE 1.004 (1.005-1.030); UROBILINOGEN URINE 0.2 E.U./dL (0.2-1.0)
[2018-08-13 14:36] LABS: BASOPHILS % 0.9 % (0.0-2.0); EOSINOPHILS % 0.5 % (0.0-5.0); HEMOGLOBIN. 11.1 g/dL (12.0-16.0); LYMPHOCYTES % 12.8 % (20.0-50.0); MEAN CORPUSCULAR HEMOGLOBIN 33.1 pg (28.0-32.0); MEAN CORPUSCULAR VOLUME 98.4 fL (81.0-99.0); MEAN PLATELET VOLUME 7.7 fl (7.4-10.4); MONOCYTES % 5.3 % (2.0-8.0); NEUTROPHILS % 80.5 % (40.0-76.0); PLATELET 302 x1000/uL (130-400); RED BLOOD CELL COUNT 3.36 mill/uL (4.2-5.4); RED CELL DISTRIBUTION WIDTH 15.4 % (11.6-14.6)
[2018-08-13 14:38] LABS: CHLORIDE 108 mEq/L (98-107)
[2018-08-13 14:40] LABS: PROTHROMBIN TIME 10.7 sec (9.6-11.0)
[2018-08-13 15:50] VITALS: BP 126/72
== END 2018-08-13 16:21 | disposition home or self-care (01) ==
LOC: ER 12:31
DX: R51 Headache (principal); R55 Syncope and collapse; R42 Dizziness and giddiness; R06.02 Shortness of breath; J44.9 Chronic obstructive pulmonary disease, unspecified; E78.00 Pure hypercholesterolemia, unspecified; I25.2 Old myocardial infarction; I11.0 Hypertensive heart disease with heart failure; I50.9 Heart failure, unspecified; Z86.73 Personal history of transient ischemic attack (TIA), and cerebral infarction without residual deficits; Z90.710 Acquired absence of both cervix and uterus; Z96.651 Presence of right artificial knee joint; Z90.89 Acquired absence of other organs; Z98.51 Tubal ligation status; Z98.890 Other specified postprocedural states; Z91.041 Radiographic dye allergy status; Z88.8 Allergy status to other drugs, medicaments and biological substances; Z88.5 Allergy status to narcotic agent; Z88.6 Allergy status to analgesic agent; Z88.3 Allergy status to other anti-infective agents; Z91.018 Allergy to other foods; Z88.1 Allergy status to other antibiotic agents; Z88.4 Allergy status to anesthetic agent; Z91.010 Allergy to peanuts; Z88.0 Allergy status to penicillin; Z79.899 Other long term (current) drug therapy
CPT/HCPCS: 36415; 70450; 71045; 80053; 81003; 83880; 84484; 85025; 85610; 93005; 96374; 96375; 99284; J1200; J2765

== ENCOUNTER 2018-08-23 19:31 | Emergency (ER) | payer MEDICARE, MEDICAID ==
[~2018-08-23] VITALS: Ht 167.6 cm; Wt 75.0 kg
[2018-08-23 23:37] LABS: BASOPHILS % 0.8 % (0.0-2.0); EOSINOPHILS % 0.8 % (0.0-5.0); HEMATOCRIT. 29.9 % (36.0-48.0); HEMOGLOBIN. 10.3 g/dL (12.0-16.0); LYMPHOCYTES % 23.1 % (20.0-50.0); MEAN CORPUSCULAR HEMOGLOBIN 33.5 pg (28.0-32.0); MEAN CORPUSCULAR VOLUME 97.4 fL (81.0-99.0); MEAN PLATELET VOLUME 6.9 fl (7.4-10.4); MONOCYTES % 7.7 % (2.0-8.0); NEUTROPHILS % 67.6 % (40.0-76.0); PLATELET 279 x1000/uL (130-400); RED BLOOD CELL COUNT 3.07 mill/uL (4.2-5.4); RED CELL DISTRIBUTION WIDTH 15.6 % (11.6-14.6)
[2018-08-23 23:43] LABS: CHLORIDE 107 mEq/L (98-107)
[2018-08-24] MEDS ORDERED: HYDROCODONE/ACETAMINOPHEN 5/325MG TABLET PO ONE (01:00)
[2018-08-24 04:53] VITALS: BP 157/75
== END 2018-08-24 05:05 | disposition short-term general hospital (02) ==
LOC: ER 19:31 → CANBEDREQ 08-24 07:03
DX: R51 Headache (principal); R42 Dizziness and giddiness; J44.9 Chronic obstructive pulmonary disease, unspecified; I25.2 Old myocardial infarction; I10 Essential (primary) hypertension; Z86.73 Personal history of transient ischemic attack (TIA), and cerebral infarction without residual deficits; Z90.710 Acquired absence of both cervix and uterus; Z79.899 Other long term (current) drug therapy; Z90.89 Acquired absence of other organs; M19.90 Unspecified osteoarthritis, unspecified site; Z88.6 Allergy status to analgesic agent; Z88.1 Allergy status to other antibiotic agents; Z88.8 Allergy status to other drugs, medicaments and biological substances; Z91.018 Allergy to other foods; Z91.048 Other nonmedicinal substance allergy status; Z88.0 Allergy status to penicillin; Z91.010 Allergy to peanuts; Z88.5 Allergy status to narcotic agent
CPT/HCPCS: 36415; 71045; 83880; 84484; 93005; 99285

== ENCOUNTER 2018-09-24 14:22 | Emergency (ER) | payer MEDICARE, MEDICAID ==
[~2018-09-24] VITALS: Ht 154.9 cm; Wt 84.0 kg
[2018-09-24] MEDS ORDERED: PROCHLORPERAZINE 10MG/2ML VIAL IM ONE (14:45)
[2018-09-24] MEDS ORDERED: DIPHENHYDRAMINE 12.5MG/5ML UDC PO ONE (14:45)
[2018-09-24] MEDS ORDERED: ACETAMINOPHEN 325MG TABLET PO ONE (14:45)
[2018-09-24 15:35] LABS: CHLORIDE 105 mEq/L (98-107)
[2018-09-24 15:46] LABS: HEMATOCRIT. 33.5 % (36.0-48.0); HEMOGLOBIN. 11.2 g/dL (12.0-16.0); MEAN CORPUSCULAR VOLUME 98.9 fL (81.0-99.0); MEAN PLATELET VOLUME 8.6 fl (7.4-10.4); PLATELET 273 x1000/uL (130-400); RED BLOOD CELL COUNT 3.38 mill/uL (4.2-5.4); RED CELL DISTRIBUTION WIDTH 15.7 % (11.6-14.6)
[2018-09-24 16:24] LABS: ATYPICAL LYMPHOCYTES 1; PLATELET ESTIMATE NORMAL
[2018-09-24 16:34] VITALS: BP 133/80
== END 2018-09-24 16:59 | disposition home or self-care (01) ==
LOC: ER 14:22
DX: R51 Headache (principal); R06.02 Shortness of breath; R07.89 Other chest pain; J44.9 Chronic obstructive pulmonary disease, unspecified; I10 Essential (primary) hypertension; Z86.73 Personal history of transient ischemic attack (TIA), and cerebral infarction without residual deficits; Z90.710 Acquired absence of both cervix and uterus; Z96.659 Presence of unspecified artificial knee joint; Z90.89 Acquired absence of other organs; Z88.6 Allergy status to analgesic agent; Z91.041 Radiographic dye allergy status; Z88.8 Allergy status to other drugs, medicaments and biological substances; Z88.3 Allergy status to other anti-infective agents; Z91.048 Other nonmedicinal substance allergy status; Z91.018 Allergy to other foods; Z88.9 Allergy status to unspecified drugs, medicaments and biological substances; Z88.0 Allergy status to penicillin; Z88.1 Allergy status to other antibiotic agents; Z91.010 Allergy to peanuts; Z88.5 Allergy status to narcotic agent; Z91.013 Allergy to seafood; Z79.899 Other long term (current) drug therapy
CPT/HCPCS: 36415; 70450; 71045; 80053; 83690; 83880; 84484; 85025; 93005; 96372; 99284; J0780; Q0163

== ENCOUNTER 2018-09-30 10:44 | Emergency (ER) | payer MEDICARE, MEDICAID ==
[~2018-09-30] VITALS: Ht 165.1 cm; Wt 95.0 kg
[2018-09-30] MEDS ORDERED: SODIUM CHLORIDE 0.9% 1,000 ML IV ONE (11:34)
[2018-09-30] MEDS ORDERED: ACETAMINOPHEN 325MG TABLET PO ONE (11:45)
[2018-09-30] MEDS ORDERED: METOCLOPRAMIDE HCL 10MG/2ML VIAL IV ONE (11:45)
[2018-09-30 12:09] LABS: BASOPHILS % 0.7 % (0.0-2.0); EOSINOPHILS % 1.7 % (0.0-5.0); HEMATOCRIT. 32.9 % (36.0-48.0); HEMOGLOBIN. 11.1 g/dL (12.0-16.0); LYMPHOCYTES % 26.4 % (20.0-50.0); MEAN CORPUSCULAR HEMOGLOBIN 33.8 pg (28.0-32.0); MEAN CORPUSCULAR VOLUME 100.3 fL (81.0-99.0); MEAN PLATELET VOLUME 7.6 fl (7.4-10.4); MONOCYTES % 9.8 % (2.0-8.0); NEUTROPHILS % 61.4 % (40.0-76.0); PLATELET 315 x1000/uL (130-400); RED BLOOD CELL COUNT 3.28 mill/uL (4.2-5.4); RED CELL DISTRIBUTION WIDTH 15.9 % (11.6-14.6)
[2018-09-30 12:16] LABS: CHLORIDE 106 mEq/L (98-107)
[2018-09-30 12:45] LABS: CLARITY URINE CLOUDY (CLEAR); COLOR URINE YELLOW (YELLOW); KETONES URINE NEGATIVE (NEGATIVE); LEUKOCYTE ESTERASE URINE 1+ (NEGATIVE); NITRITE URINE NEGATIVE (NEGATIVE); OCCULT BLOOD URINE NEGATIVE (NEGATIVE); PROTEIN URINE NEGATIVE (NEGATIVE); SPECIFIC GRAVITY URINE 1.008 (1.005-1.030); UROBILINOGEN URINE 0.2 E.U./dL (0.2-1.0)
[2018-09-30 14:54] VITALS: BP 161/68
== END 2018-09-30 14:56 | disposition home or self-care (01) ==
LOC: ER 10:44
DX: N39.0 Urinary tract infection, site not specified (principal); G43.909 Migraine, unspecified, not intractable, without status migrainosus; I25.2 Old myocardial infarction; J44.9 Chronic obstructive pulmonary disease, unspecified; I10 Essential (primary) hypertension; M19.90 Unspecified osteoarthritis, unspecified site; E78.00 Pure hypercholesterolemia, unspecified; Z88.8 Allergy status to other drugs, medicaments and biological substances; Z79.899 Other long term (current) drug therapy; Z88.0 Allergy status to penicillin; Z91.010 Allergy to peanuts; Z88.5 Allergy status to narcotic agent; Z88.1 Allergy status to other antibiotic agents; Z98.51 Tubal ligation status; Z90.710 Acquired absence of both cervix and uterus
CPT/HCPCS: 36415; 80053; 81003; 85025; 96374; 99283; J2765; J7030

== ENCOUNTER 2018-10-08 13:45 | Emergency (ER) | payer MEDICARE, MEDICAID ==
[~2018-10-08] VITALS: Ht 154.9 cm; Wt 82.0 kg
[2018-10-08] MEDS ORDERED: SODIUM CHLORIDE 0.9% 1,000 ML IV ONE (15:08)
[2018-10-08] MEDS ORDERED: ACETAMINOPHEN 325MG TABLET PO ONE (15:15)
[2018-10-08] MEDS ORDERED: METOCLOPRAMIDE HCL 10MG/2ML VIAL IV ONE (15:15)
[2018-10-08 16:03] LABS: CLARITY URINE CLEAR (CLEAR); COLOR URINE YELLOW (YELLOW); KETONES URINE NEGATIVE (NEGATIVE); LEUKOCYTE ESTERASE URINE NEGATIVE (NEGATIVE); NITRITE URINE NEGATIVE (NEGATIVE); OCCULT BLOOD URINE TRACE (NEGATIVE); PROTEIN URINE NEGATIVE (NEGATIVE); SPECIFIC GRAVITY URINE 1.011 (1.005-1.030); UROBILINOGEN URINE 0.2 E.U./dL (0.2-1.0)
[2018-10-08 16:48] LABS: CHLORIDE 103 mEq/L (98-107)
[2018-10-08 17:01] LABS: EOSINOPHILS % 1.9 % (0.0-5.0); HEMATOCRIT. 32.4 % (36.0-48.0); HEMOGLOBIN. 11.2 g/dL (12.0-16.0); LYMPHOCYTES % 31.3 % (20.0-50.0); MEAN CORPUSCULAR HEMOGLOBIN 34.5 pg (28.0-32.0); MEAN CORPUSCULAR VOLUME 99.6 fL (81.0-99.0); MEAN PLATELET VOLUME 7.9 fl (7.4-10.4); MONOCYTES % 9.8 % (2.0-8.0); PLATELET 317 x1000/uL (130-400); RED BLOOD CELL COUNT 3.26 mill/uL (4.2-5.4); RED CELL DISTRIBUTION WIDTH 15.3 % (11.6-14.6)
[2018-10-08 19:02] VITALS: BP 165/94
== END 2018-10-08 19:04 | disposition home or self-care (01) ==
LOC: ER 13:45
DX: R51 Headache (principal); N39.0 Urinary tract infection, site not specified; J44.9 Chronic obstructive pulmonary disease, unspecified; I69.354 Hemiplegia and hemiparesis following cerebral infarction affecting left non-dominant side; I10 Essential (primary) hypertension; E78.00 Pure hypercholesterolemia, unspecified; I25.2 Old myocardial infarction; G43.909 Migraine, unspecified, not intractable, without status migrainosus; Z86.73 Personal history of transient ischemic attack (TIA), and cerebral infarction without residual deficits; Z90.710 Acquired absence of both cervix and uterus; Z90.89 Acquired absence of other organs; Z98.51 Tubal ligation status; Z88.0 Allergy status to penicillin; Z88.1 Allergy status to other antibiotic agents; Z88.6 Allergy status to analgesic agent; Z88.8 Allergy status to other drugs, medicaments and biological substances; Z91.041 Radiographic dye allergy status; Z88.3 Allergy status to other anti-infective agents; Z91.018 Allergy to other foods; Z88.5 Allergy status to narcotic agent; Z88.9 Allergy status to unspecified drugs, medicaments and biological substances; Z88.2 Allergy status to sulfonamides; Z91.010 Allergy to peanuts; Z91.013 Allergy to seafood
CPT/HCPCS: 36415; 70450; 71045; 80053; 81003; 83880; 84484; 85025; 87086; 93005; 96361; 96374; 99284; J2765; J7030

== ENCOUNTER 2018-12-02 18:38 | Inpatient (IN) | payer MEDICARE, MEDICAID ==
[~2018-12-02] VITALS: Ht 154.9 cm; Wt 78.9 kg
[2018-12-02 20:13] LABS: BG CARBOXYHEMOGLOBIN 0.3 % (0.5-1.5); BG DEOXYHEMOGLOBIN 8.7 % (0.0-5.0); BG FRACTION INSPIRED OXYGEN 21; BG HCO3 ACT 19.6 mmol/L (22.0-26.0); BG METHEMOGLOBIN 0.6 % (0.0-1.5); BG OXYGEN SATURATION 91.2 % (92.0-98.5); BG OXYHEMOGLOBIN 90.4 % (94.0-97.0); BG PCO2 34.9 mmHg (35.0-45.0); BG PH 7.368 (7.350-7.450); BG PO2 63.1 mmHg (75.0-100.0); BG SAMPLE SITE LEFT BRACHIAL; BG TOTAL HEMOGLOBIN 10.2 g/dL (12.0-18.0); BG VENT MODE ROOM AIR
[2018-12-02 20:39] LABS: BASOPHILS % 0.4 % (0.0-2.0); EOSINOPHILS % 0.7 % (0.0-5.0); HEMATOCRIT. 30.9 % (36.0-48.0); HEMOGLOBIN. 10.4 g/dL (12.0-16.0); LYMPHOCYTES % 13.9 % (20.0-50.0); MEAN CORPUSCULAR VOLUME 101.4 fL (81.0-99.0); MEAN PLATELET VOLUME 7.3 fl (7.4-10.4); MONOCYTES % 5.8 % (2.0-8.0); NEUTROPHILS % 79.2 % (40.0-76.0); PLATELET 269 x1000/uL (130-400); RED BLOOD CELL COUNT 3.05 mill/uL (4.2-5.4); RED CELL DISTRIBUTION WIDTH 14.7 % (11.6-14.6)
[2018-12-02 20:42] LABS: CHLORIDE 105 mEq/L (98-107)
[2018-12-02 20:46] LABS: CLARITY URINE CLEAR (CLEAR); COLOR URINE YELLOW (YELLOW); KETONES URINE NEGATIVE (NEGATIVE); LEUKOCYTE ESTERASE URINE NEGATIVE (NEGATIVE); NITRITE URINE NEGATIVE (NEGATIVE); OCCULT BLOOD URINE NEGATIVE (NEGATIVE); PROTEIN URINE NEGATIVE (NEGATIVE); SPECIFIC GRAVITY URINE 1.009 (1.005-1.030); UROBILINOGEN URINE 0.2 E.U./dL (0.2-1.0)
[2018-12-03] VITALS (7 sets, daily range): BP systolic 100–146; BP diastolic 35–78
[2018-12-03] MEDS ORDERED: FLUT15.88 BOTHNSTRLS (04:29)
[2018-12-03] MEDS ORDERED: TRAMADOL 50MG TABLET PO PRN (05:00)
[2018-12-03] MEDS ORDERED: DOCUSATE SODIUM 250MG CAPSULE PO PRN (05:00)
[2018-12-03] MEDS ORDERED: NITROGLYCERIN 0.4MG TABLET SL SL PRN (05:00)
[2018-12-03] MEDS ORDERED: ALBUTEROL (0.083%) 2.5MG/3ML NEB HHN PRN (05:00)
[2018-12-03] MEDS: ACETAMINOPHEN 325MG TABLET PO PRN ×2 (05:11→12:45)
[2018-12-03] MEDS: DOXAZOSIN MESYLATE 4MG TABLET PO SCH (08:11)
[2018-12-03] MEDS: EZETIMIBE 10MG TABLET PO SCH (08:11)
[2018-12-03] MEDS: PANTOPRAZOLE 40MG DR TABLET PO SCH (08:11)
[2018-12-03] MEDS ORDERED: MEDICATION NOT ON FORMULARY EA (Budesonide/Formoterol Fumarate (Symbicort 160/4.5 Mcg In INH SCH (09:00)
[2018-12-03] MEDS ORDERED: PNEUMOC 13-VAL CONJ-DIP CRM/PF 0.5 ML DISP.SYRIN IM ONE (09:00)
[2018-12-03 09:21] LABS: BASOPHILS % 0.8 % (0.0-2.0); EOSINOPHILS % 1.8 % (0.0-5.0); HEMATOCRIT. 28.9 % (36.0-48.0); HEMOGLOBIN. 9.8 g/dL (12.0-16.0); LYMPHOCYTES % 25.5 % (20.0-50.0); MEAN CORPUSCULAR HEMOGLOBIN 34.1 pg (28.0-32.0); MEAN CORPUSCULAR VOLUME 100.6 fL (81.0-99.0); MEAN PLATELET VOLUME 7.3 fl (7.4-10.4); MONOCYTES % 10.1 % (2.0-8.0); NEUTROPHILS % 61.8 % (40.0-76.0); PLATELET 256 x1000/uL (130-400); RED BLOOD CELL COUNT 2.87 mill/uL (4.2-5.4); RED CELL DISTRIBUTION WIDTH 14.3 % (11.6-14.6)
[2018-12-03 09:43] LABS: CHLORIDE 107 mEq/L (98-107)
[2018-12-03 09:54] LABS: CREATINE KINASE 122 IU/L (26-192)
[2018-12-03 09:57] LABS: CREATINE KINASE MB FRACTION < 1.0 ng/mL (0.5-3.6)
[2018-12-03 16:03] LABS: CREATINE KINASE 124 IU/L (26-192)
[2018-12-03 16:04] LABS: CREATINE KINASE MB FRACTION < 1.0 ng/mL (0.5-3.6)
[2018-12-03] MEDS: BUDESONIDE 0.5MG/2ML NEB HHN SCH (21:19)
[2018-12-04] VITALS: BP 141/61
[2018-12-04 01:10] LABS: CREATINE KINASE 131 IU/L (26-192)
[2018-12-04 01:11] LABS: CREATINE KINASE MB FRACTION < 1.0 ng/mL (0.5-3.6)
[2018-12-04 04:00] VITALS: BP 112/50
[2018-12-04] MEDS: PANTOPRAZOLE 40MG DR TABLET PO SCH (06:24)
[2018-12-04] MEDS: BUDESONIDE 0.5MG/2ML NEB HHN SCH ×2 (07:41→15:50)
[2018-12-04 08:00] VITALS: BP 131/64
[2018-12-04] MEDS: DOXAZOSIN MESYLATE 4MG TABLET PO SCH (08:36)
[2018-12-04] MEDS: EZETIMIBE 10MG TABLET PO SCH (08:36)
[2018-12-04] MEDS: ACETAMINOPHEN 325MG TABLET PO PRN (10:22)
[2018-12-04] MEDS: IPRATROPIUM/ALBUTEROL 0.5-3(2.5)MG/3ML NEB HHN SCH ×3 (11:59→20:10)
[2018-12-04 12:00] VITALS: BP 128/81
[2018-12-04 16:00] VITALS: BP_SYST 126; BP_SYST 134; BP_SYST 149; BP_DIAS 65; BP_DIAS 67; BP_DIAS 74
[2018-12-04 20:00] VITALS: BP_SYST 137; BP_SYST 145; BP_DIAS 65; BP_DIAS 68
[2018-12-05] VITALS: BP 138/64
[2018-12-05] MEDS: ACETAMINOPHEN 325MG TABLET PO PRN ×2 (00:01→17:08)
[2018-12-05] MEDS: IPRATROPIUM/ALBUTEROL 0.5-3(2.5)MG/3ML NEB HHN SCH ×6 (00:37→21:26)
[2018-12-05 04:00] VITALS: BP 132/66
[2018-12-05] MEDS: PANTOPRAZOLE 40MG DR TABLET PO SCH (06:47)
[2018-12-05 08:00] VITALS: BP 136/64
[2018-12-05] MEDS: BUDESONIDE 0.5MG/2ML NEB HHN SCH ×2 (08:09→21:26)
[2018-12-05] MEDS: EZETIMIBE 10MG TABLET PO SCH (08:46)
[2018-12-05] MEDS: DOXAZOSIN MESYLATE 4MG TABLET PO SCH (08:47)
[2018-12-05 12:00] VITALS: BP_SYST 113; BP_SYST 119; BP_SYST 122; BP_DIAS 58; BP_DIAS 65; BP_DIAS 68
[2018-12-05] MEDS: DOCUSATE SODIUM 100MG CAPSULE PO SCH (15:51)
[2018-12-05 16:00] VITALS: BP 129/63
[2018-12-05 20:00] VITALS: BP 118/49
[2018-12-06] VITALS: BP 149/63
[2018-12-06] MEDS: IPRATROPIUM/ALBUTEROL 0.5-3(2.5)MG/3ML NEB HHN SCH ×6 (00:44→20:32)
[2018-12-06 04:00] VITALS: BP 140/59
[2018-12-06 08:00] VITALS: BP_SYST 133; BP_SYST 135; BP_SYST 140; BP_DIAS 60; BP_DIAS 65; BP_DIAS 68
[2018-12-06] MEDS: BUDESONIDE 0.5MG/2ML NEB HHN SCH (08:28)
[2018-12-06] MEDS: PANTOPRAZOLE 40MG DR TABLET PO SCH (08:55)
[2018-12-06] MEDS: DOCUSATE SODIUM 100MG CAPSULE PO SCH ×3 (08:55→17:00)
[2018-12-06] MEDS: EZETIMIBE 10MG TABLET PO SCH (08:55)
[2018-12-06] MEDS: DOXAZOSIN MESYLATE 4MG TABLET PO SCH (08:56)
[2018-12-06 12:00] VITALS: BP 126/67
[2018-12-06 16:00] VITALS: BP 120/64
[2018-12-06] MEDS: ACETAMINOPHEN 325MG TABLET PO PRN (17:58)
[2018-12-06 20:00] VITALS: BP_SYST 115; BP_SYST 119; BP_SYST 135; BP_DIAS 51; BP_DIAS 61; BP_DIAS 67
[2018-12-07] MEDS: ACETAMINOPHEN 325MG TABLET PO PRN ×2 (00:02→17:13)
[2018-12-07 00:40] VITALS: BP 135/62
[2018-12-07 04:00] VITALS: BP 116/57
[2018-12-07] MEDS: IPRATROPIUM/ALBUTEROL 0.5-3(2.5)MG/3ML NEB HHN SCH ×5 (07:43→20:43)
[2018-12-07 08:00] VITALS: BP_SYST 131; BP_SYST 139; BP_SYST 144; BP_DIAS 54; BP_DIAS 64; BP_DIAS 66
[2018-12-07] MEDS: DOCUSATE SODIUM 100MG CAPSULE PO SCH ×2 (08:44→17:10)
[2018-12-07] MEDS: FAMOTIDINE 20MG TABLET PO SCH (08:44)
[2018-12-07] MEDS: EZETIMIBE 10MG TABLET PO SCH (08:44)
[2018-12-07] MEDS: DOXAZOSIN MESYLATE 4MG TABLET PO SCH (08:45)
[2018-12-07 12:00] VITALS: BP 142/64
[2018-12-07 16:00] VITALS: BP 143/72
[2018-12-07 20:00] VITALS: BP_SYST 104; BP_SYST 122; BP_SYST 127; BP_DIAS 47; BP_DIAS 54; BP_DIAS 62
[2018-12-08] VITALS (7 sets, daily range): BP systolic 112–144; BP diastolic 64–79
[2018-12-08] MEDS: IPRATROPIUM/ALBUTEROL 0.5-3(2.5)MG/3ML NEB HHN SCH ×6 (00:44→21:08)
[2018-12-08] MEDS: ACETAMINOPHEN 325MG TABLET PO PRN ×2 (03:40→11:31)
[2018-12-08] MEDS: DOCUSATE SODIUM 100MG CAPSULE PO SCH ×2 (08:27→17:00)
[2018-12-08] MEDS: EZETIMIBE 10MG TABLET PO SCH (08:27)
[2018-12-08] MEDS: DOXAZOSIN MESYLATE 4MG TABLET PO SCH (08:27)
[2018-12-08] MEDS: FAMOTIDINE 20MG TABLET PO SCH (08:27)
== END 2018-12-08 22:00 | DRG 312 ==
LOC: ER 18:38 → 8WST 21:26 → EDBEDREQ 21:35 → EDBEDREQTM 21:35 → ENRESERV 12-03 00:55
PROVIDERS: ADMIT Internal Medicine; ATTEND Internal Medicine
PROC: 4A00X4Z Measurement of Central Nervous Electrical Activity, External Approach (ICD-10-PCS; principal; 2018-12-06)
DX: R55 Syncope and collapse (principal); J44.9 Chronic obstructive pulmonary disease, unspecified; I10 Essential (primary) hypertension; R09.02 Hypoxemia; E78.5 Hyperlipidemia, unspecified; I25.10 Atherosclerotic heart disease of native coronary artery without angina pectoris; D64.9 Anemia, unspecified; E11.9 Type 2 diabetes mellitus without complications; Z96.651 Presence of right artificial knee joint; G43.909 Migraine, unspecified, not intractable, without status migrainosus; M19.90 Unspecified osteoarthritis, unspecified site; E78.00 Pure hypercholesterolemia, unspecified; Z82.49 Family history of ischemic heart disease and other diseases of the circulatory system; Z87.891 Personal history of nicotine dependence; Z90.710 Acquired absence of both cervix and uterus; Z88.6 Allergy status to analgesic agent; Z88.1 Allergy status to other antibiotic agents; Z82.3 Family history of stroke; Z91.041 Radiographic dye allergy status; Z86.73 Personal history of transient ischemic attack (TIA), and cerebral infarction without residual deficits; Z91.010 Allergy to peanuts; Z88.0 Allergy status to penicillin; Z88.2 Allergy status to sulfonamides; Z88.8 Allergy status to other drugs, medicaments and biological substances; Z91.018 Allergy to other foods; Z91.013 Allergy to seafood; Z79.899 Other long term (current) drug therapy; I25.2 Old myocardial infarction; Z98.51 Tubal ligation status
CPT/HCPCS: 36415; 36600; 70544; 70553; 71045; 78582; 80048; 82375; 82550; 82553; 82805; 83605; 83880; 84484; 85379; 90670; 93005; 93306; 93880; 94640; 97116; 97162; 97166; 97530; 97535; 99285; A9558; J7611; J7620; J7626

== ENCOUNTER 2019-02-21 17:03 | Emergency (ER) | payer MEDICARE, MEDICAID ==
[~2019-02-21] VITALS: Ht 162.6 cm; Wt 68.0 kg
[~2019-02-21 17:03] MED LIST changes: +EZET10TA13 PO; +FLUT15.88 BOTHNSTRLS; -ZET10 PO
[2019-02-21] MEDS ORDERED: ACETAMINOPHEN 325MG TABLET PO STA (18:27)
[2019-02-21] MEDS ORDERED: ONDANSETRON HCL 4MG/2ML INJ IV STA (18:27)
[2019-02-21] MEDS ORDERED: MORPHINE SULFATE 4 MG/ML CPJ (NOT FOR IM USE) IV STA (18:27)
[2019-02-21 19:08] LABS: BASOPHILS % 0.6 % (0.0-2.0); EOSINOPHILS % 0.5 % (0.0-5.0); HEMATOCRIT. 31.7 % (36.0-48.0); HEMOGLOBIN. 10.9 g/dL (12.0-16.0); LYMPHOCYTES % 18.3 % (20.0-50.0); MEAN CORPUSCULAR HEMOGLOBIN 34.5 pg (28.0-32.0); MEAN CORPUSCULAR VOLUME 100.1 fL (81.0-99.0); MEAN PLATELET VOLUME 7.2 fl (7.4-10.4); MONOCYTES % 5.5 % (2.0-8.0); NEUTROPHILS % 75.1 % (40.0-76.0); PLATELET 338 x1000/uL (130-400); RED BLOOD CELL COUNT 3.16 mill/uL (4.2-5.4); RED CELL DISTRIBUTION WIDTH 15.2 % (11.6-14.6)
[2019-02-21 19:14] LABS: CHLORIDE 103 mEq/L (98-107)
[2019-02-21 19:16] LABS: PARTIAL THROMBOPLASTIN TIME 25.7 sec (23.4-31.0); PROTHROMBIN TIME 10.7 sec (9.6-11.0)
[2019-02-21 19:35] LABS: CLARITY URINE CLEAR (CLEAR); COLOR URINE YELLOW (YELLOW); KETONES URINE NEGATIVE (NEGATIVE); LEUKOCYTE ESTERASE URINE NEGATIVE (NEGATIVE); NITRITE URINE NEGATIVE (NEGATIVE); OCCULT BLOOD URINE TRACE (NEGATIVE); PROTEIN URINE NEGATIVE (NEGATIVE); UROBILINOGEN URINE 0.2 E.U./dL (0.2-1.0)
[2019-02-21 22:55] VITALS: BP 163/79
== END 2019-02-21 22:58 | disposition short-term general hospital (02) ==
LOC: ER 17:03 → EDBEDREQ 19:25 → EDBEDREQTM 19:25 → ER 22:58 → CANBEDREQ 02-22 00:17
DX: R51 Headache (principal); R07.89 Other chest pain; D64.9 Anemia, unspecified; I25.2 Old myocardial infarction; M19.90 Unspecified osteoarthritis, unspecified site; J44.9 Chronic obstructive pulmonary disease, unspecified; E78.00 Pure hypercholesterolemia, unspecified; I10 Essential (primary) hypertension; Z86.73 Personal history of transient ischemic attack (TIA), and cerebral infarction without residual deficits; Z90.710 Acquired absence of both cervix and uterus; Z88.6 Allergy status to analgesic agent; Z91.041 Radiographic dye allergy status; Z91.013 Allergy to seafood; Z88.0 Allergy status to penicillin; Z88.2 Allergy status to sulfonamides; Z91.010 Allergy to peanuts; Z88.5 Allergy status to narcotic agent; Z91.018 Allergy to other foods
CPT/HCPCS: 36415; 70450; 71045; 80053; 81003; 83880; 84484; 85025; 85610; 85730; 93005; 96374; 96375; 99285; J2270; J2405

== ENCOUNTER 2019-02-27 15:21 | Emergency (ER) | payer MEDICARE, MEDICAID ==
[~2019-02-27] VITALS: Ht 162.6 cm; Wt 82.0 kg
[2019-02-27] MEDS ORDERED: MORPHINE SULFATE 4 MG/ML CPJ (NOT FOR IM USE) IV STA (15:45)
[2019-02-27] MEDS ORDERED: ONDANSETRON HCL 4MG/2ML INJ IV STA (15:45)
[2019-02-27 17:31] LABS: CLARITY URINE CLEAR (CLEAR); COLOR URINE YELLOW (YELLOW); KETONES URINE NEGATIVE (NEGATIVE); LEUKOCYTE ESTERASE URINE NEGATIVE (NEGATIVE); NITRITE URINE NEGATIVE (NEGATIVE); OCCULT BLOOD URINE NEGATIVE (NEGATIVE); PROTEIN URINE NEGATIVE (NEGATIVE); SPECIFIC GRAVITY URINE 1.007 (1.005-1.030); UROBILINOGEN URINE 0.2 E.U./dL (0.2-1.0)
[2019-02-27 17:53] LABS: BASOPHILS % 0.8 % (0.0-2.0); EOSINOPHILS % 1.2 % (0.0-5.0); HEMATOCRIT. 31.2 % (36.0-48.0); HEMOGLOBIN. 10.4 g/dL (12.0-16.0); LYMPHOCYTES % 16.2 % (20.0-50.0); MEAN CORPUSCULAR HEMOGLOBIN 33.9 pg (28.0-32.0); MEAN CORPUSCULAR VOLUME 101.2 fL (81.0-99.0); MEAN PLATELET VOLUME 7.5 fl (7.4-10.4); MONOCYTES % 8.5 % (2.0-8.0); NEUTROPHILS % 73.3 % (40.0-76.0); PLATELET 270 x1000/uL (130-400); RED BLOOD CELL COUNT 3.08 mill/uL (4.2-5.4)
[2019-02-27 17:56] LABS: CHLORIDE 101 mEq/L (98-107); PROTHROMBIN TIME 10.6 sec (9.6-11.0)
[2019-02-27] MEDS ORDERED: SODIUM CHLORIDE 0.9% 1,000 ML IV ONE (18:55)
[2019-02-27] MEDS ORDERED: MORPHINE SULFATE 2 MG/ML CPJ (NOT FOR IM USE) IV ONE (19:00)
[2019-02-27 21:09] VITALS: BP 151/55
== END 2019-02-27 21:44 | disposition short-term general hospital (02) ==
LOC: ER 16:37 → CANBEDREQ 02-28 06:10
DX: R51 Headache (principal); I10 Essential (primary) hypertension; R42 Dizziness and giddiness; R11.0 Nausea; J44.9 Chronic obstructive pulmonary disease, unspecified; E78.00 Pure hypercholesterolemia, unspecified; I25.2 Old myocardial infarction; Z86.73 Personal history of transient ischemic attack (TIA), and cerebral infarction without residual deficits; Z90.89 Acquired absence of other organs; Z98.51 Tubal ligation status; Z90.710 Acquired absence of both cervix and uterus; Z91.010 Allergy to peanuts; Z88.6 Allergy status to analgesic agent; Z91.041 Radiographic dye allergy status; Z88.8 Allergy status to other drugs, medicaments and biological substances; Z88.3 Allergy status to other anti-infective agents; Z91.018 Allergy to other foods; Z88.1 Allergy status to other antibiotic agents; Z88.2 Allergy status to sulfonamides; Z88.5 Allergy status to narcotic agent; Z79.899 Other long term (current) drug therapy
CPT/HCPCS: 36415; 70450; 80053; 81003; 84484; 85025; 85610; 93005; 96361; 96374; 96375; 96376; 99285; J2270; J2405; J7030; P9612; A4315

== ENCOUNTER 2020-01-23 18:09 | Emergency (ER) | payer MEDICARE, MEDICAID ==
[~2020-01-23] VITALS: Ht 170.2 cm; Wt 79.0 kg
[~2020-01-23 18:09] MED LIST changes: +FLUT15.844 BOTHNSTRLS; -FLUT15.88 BOTHNSTRLS
[2020-01-23] MEDS ORDERED: NITROGLYCERIN 0.4MG TABLET SL SL PRN (18:45)
[2020-01-23 19:17] LABS: BASOPHILS % 0.8 % (0.0-2.0); EOSINOPHILS % 1.5 % (0.0-5.0); HEMATOCRIT. 32.1 % (36.0-48.0); HEMOGLOBIN. 10.9 g/dL (12.0-16.0); LYMPHOCYTES % 25.4 % (20.0-50.0); MEAN CORPUSCULAR HEMOGLOBIN 35.3 pg (28.0-32.0); MEAN CORPUSCULAR VOLUME 103.8 fL (81.0-99.0); MEAN PLATELET VOLUME 7.1 fl (7.4-10.4); MONOCYTES % 8.4 % (2.0-8.0); NEUTROPHILS % 63.9 % (40.0-76.0); PLATELET 309 x1000/uL (130-400); RED BLOOD CELL COUNT 3.09 mill/uL (4.2-5.4); RED CELL DISTRIBUTION WIDTH 13.9 % (11.6-14.6)
[2020-01-23 19:23] LABS: CHLORIDE 103 mEq/L (98-107)
[2020-01-23 22:30] VITALS: BP 141/63
[2020-01-24] MEDS ORDERED: ACETAMINOPHEN 325MG TABLET PO ONE (00:45)
[2020-01-24] MEDS ORDERED: ACETAMINOPHEN 325MG TABLET ONE (00:51)
== END 2020-01-24 01:51 | disposition short-term general hospital (02) ==
LOC: ER 18:09 → EDBEDREQTM 20:33 → EDBEDREQ 20:33 → ENRESERV 22:03 → CANRESERV 22:03 → ER 01-24 01:51 → CANBEDREQ 01-24 02:02
DX: R07.89 Other chest pain (principal); I25.2 Old myocardial infarction; I10 Essential (primary) hypertension; E11.9 Type 2 diabetes mellitus without complications; J44.9 Chronic obstructive pulmonary disease, unspecified; E78.00 Pure hypercholesterolemia, unspecified; Z88.2 Allergy status to sulfonamides; Z88.8 Allergy status to other drugs, medicaments and biological substances; Z88.6 Allergy status to analgesic agent; Z91.041 Radiographic dye allergy status; Z91.018 Allergy to other foods; Z88.1 Allergy status to other antibiotic agents; Z88.0 Allergy status to penicillin; Z91.010 Allergy to peanuts; Z90.710 Acquired absence of both cervix and uterus; Z98.51 Tubal ligation status
CPT/HCPCS: 36415; 71045; 80053; 83880; 84484; 85025; 93005; 99285

== ENCOUNTER 2020-01-29 04:52 | Emergency (ER) | payer MEDICARE, MEDICAID ==
[~2020-01-29] VITALS: Ht 170.2 cm; Wt 69.0 kg
[2020-01-29] MEDS ORDERED: ACETAMINOPHEN WITH CODEINE 300/30MG TABLET PO STA (06:31)
[2020-01-29 06:54] LABS: BASOPHILS % 0.8 % (0.0-2.0); EOSINOPHILS % 2.1 % (0.0-5.0); HEMATOCRIT. 29.7 % (36.0-48.0); HEMOGLOBIN. 10.2 g/dL (12.0-16.0); LYMPHOCYTES % 19.6 % (20.0-50.0); MEAN CORPUSCULAR HEMOGLOBIN 35.1 pg (28.0-32.0); MEAN CORPUSCULAR VOLUME 102.1 fL (81.0-99.0); MEAN PLATELET VOLUME 6.9 fl (7.4-10.4); NEUTROPHILS % 67.5 % (40.0-76.0); PLATELET 289 x1000/uL (130-400); RED BLOOD CELL COUNT 2.91 mill/uL (4.2-5.4); RED CELL DISTRIBUTION WIDTH 13.5 % (11.6-14.6)
[2020-01-29 06:56] LABS: CHLORIDE 98 mEq/L (98-107)
[2020-01-29] MEDS ORDERED: ACETAMINOPHEN 325MG TABLET PO ONE (07:30)
[2020-01-29] MEDS ORDERED: ASPIRIN 81MG TABLET PO ONE (08:15)
[2020-01-29] MEDS ORDERED: SODIUM CHLORIDE 0.9% 1,000 ML IV ONE (09:45)
[2020-01-29 10:32] VITALS: BP 134/80
== END 2020-01-29 11:44 ==
LOC: ER 04:52 → CANBEDREQ 12:48
DX: G90.8 Other disorders of autonomic nervous system (principal); R42 Dizziness and giddiness; F17.200 Nicotine dependence, unspecified, uncomplicated; I11.0 Hypertensive heart disease with heart failure; I50.9 Heart failure, unspecified; E78.00 Pure hypercholesterolemia, unspecified; Z88.6 Allergy status to analgesic agent; Z88.8 Allergy status to other drugs, medicaments and biological substances; Z88.3 Allergy status to other anti-infective agents; Z91.018 Allergy to other foods; Z88.1 Allergy status to other antibiotic agents; Z88.0 Allergy status to penicillin; Z79.899 Other long term (current) drug therapy; Z91.010 Allergy to peanuts; Z86.73 Personal history of transient ischemic attack (TIA), and cerebral infarction without residual deficits
CPT/HCPCS: 36415; 70450; 71045; 80053; 84484; 85025; 85610; 93005; 96360; 99285; J7030

== ENCOUNTER 2020-03-11 13:40 | Emergency (ER) | payer MEDICARE, MEDICAID ==
[~2020-03-11] VITALS: Ht 162.6 cm; Wt 65.0 kg
[2020-03-11 16:15] VITALS: BP 154/68
== END 2020-03-11 16:48 | disposition home or self-care (01) ==
LOC: ER 13:53
DX: H61.21 Impacted cerumen, right ear (principal); J44.9 Chronic obstructive pulmonary disease, unspecified; I11.0 Hypertensive heart disease with heart failure; I50.9 Heart failure, unspecified; I25.2 Old myocardial infarction; Z86.73 Personal history of transient ischemic attack (TIA), and cerebral infarction without residual deficits; Z79.899 Other long term (current) drug therapy; Z88.0 Allergy status to penicillin; Z88.6 Allergy status to analgesic agent; Z88.5 Allergy status to narcotic agent; Z88.2 Allergy status to sulfonamides; Z91.041 Radiographic dye allergy status
CPT/HCPCS: 93005; 99283

== ENCOUNTER 2020-06-27 16:09 | Emergency (ER) | payer MEDICARE, MEDICAID ==
[~2020-06-27] VITALS: Ht 162.6 cm; Wt 77.0 kg
[~2020-06-27 16:09] MED LIST changes: -PANT40TA4 PO; +PANT40TA51 PO
[2020-06-27 17:27] LABS: BASOPHILS % 0.4 % (0.0-2.0); EOSINOPHILS % 7.1 % (0.0-5.0); HEMOGLOBIN. 10.7 g/dL (12.0-16.0); LYMPHOCYTES % 22.1 % (20.0-50.0); MEAN CORPUSCULAR HEMOGLOBIN 35.4 pg (28.0-32.0); MEAN CORPUSCULAR VOLUME 106.2 fL (81.0-99.0); MEAN PLATELET VOLUME 7.8 fl (7.4-10.4); MONOCYTES % 8.9 % (2.0-8.0); NEUTROPHILS % 61.5 % (40.0-76.0); PLATELET 271 x1000/uL (130-400); RED BLOOD CELL COUNT 3.01 mill/uL (4.2-5.4); RED CELL DISTRIBUTION WIDTH 14.6 % (11.6-14.6)
[2020-06-27 17:35] LABS: CHLORIDE 106 mEq/L (98-107)
[2020-06-27 17:37] LABS: PROTHROMBIN TIME 10.9 sec (9.6-11.0)
[2020-06-27 17:38] LABS: ETHANOL BLOOD < 10 mg/dL
[2020-06-27 20:41] LABS: CLARITY URINE CLEAR (CLEAR); COLOR URINE YELLOW (YELLOW); KETONES URINE NEGATIVE (NEGATIVE); LEUKOCYTE ESTERASE URINE NEGATIVE (NEGATIVE); NITRITE URINE NEGATIVE (NEGATIVE); OCCULT BLOOD URINE NEGATIVE (NEGATIVE); PH URINE 5.5 (4.5-8.0); PROTEIN URINE NEGATIVE (NEGATIVE); SPECIFIC GRAVITY URINE 1.004 (1.005-1.030); UROBILINOGEN URINE 0.2 E.U./dL (0.2-1.0)
[2020-06-27] MEDS ORDERED: CIPDEX RIGHT EAR (21:18)
[2020-06-27 21:23] VITALS: BP 160/64
== END 2020-06-27 21:38 | disposition home or self-care (01) ==
LOC: ER 16:09
DX: H66.91 Otitis media, unspecified, right ear (principal); L30.9 Dermatitis, unspecified; M19.90 Unspecified osteoarthritis, unspecified site; R42 Dizziness and giddiness; J45.909 Unspecified asthma, uncomplicated; I11.0 Hypertensive heart disease with heart failure; I50.9 Heart failure, unspecified; E78.00 Pure hypercholesterolemia, unspecified; I25.2 Old myocardial infarction; Z88.0 Allergy status to penicillin; Z88.1 Allergy status to other antibiotic agents; Z88.3 Allergy status to other anti-infective agents; Z88.6 Allergy status to analgesic agent; Z86.73 Personal history of transient ischemic attack (TIA), and cerebral infarction without residual deficits; Z91.010 Allergy to peanuts; Z91.013 Allergy to seafood; Z91.018 Allergy to other foods; Z91.041 Radiographic dye allergy status
CPT/HCPCS: 36415; 80053; 80320; 81003; 83605; 84484; 85025; 99283; G0480

== ENCOUNTER 2020-08-20 06:53 | Emergency (ER) | payer MEDICARE, MEDICAID ==
[~2020-08-20] VITALS: Ht 177.8 cm; Wt 91.0 kg
[~2020-08-20 06:53] MED LIST changes: +CIPDEX RIGHT EAR
[2020-08-20] MEDS ORDERED: SODIUM CHLORIDE 0.9% 1,000 ML IV ONE (07:15)
[2020-08-20] MEDS ORDERED: METOCLOPRAMIDE HCL 10MG/2ML VIAL IV ONE (07:15)
[2020-08-20] MEDS ORDERED: KETOROLAC 30MG/ML VIAL IV ONE (07:15)
[2020-08-20 08:05] LABS: BASOPHILS % 0.7 % (0.0-2.0); EOSINOPHILS % 6.5 % (0.0-5.0); LYMPHOCYTES % 24.7 % (20.0-50.0); MEAN CORPUSCULAR HEMOGLOBIN 35.6 pg (28.0-32.0); MEAN CORPUSCULAR VOLUME 106.9 fL (81.0-99.0); MEAN PLATELET VOLUME 7.8 fl (7.4-10.4); NEUTROPHILS % 58.1 % (40.0-76.0); PLATELET 319 x1000/uL (130-400); RED BLOOD CELL COUNT 3.09 mill/uL (4.2-5.4); RED CELL DISTRIBUTION WIDTH 15.5 % (11.6-14.6)
[2020-08-20 08:12] LABS: CHLORIDE 108 mEq/L (98-107)
[2020-08-20 08:22] LABS: CLARITY URINE CLEAR (CLEAR); COLOR URINE YELLOW (YELLOW); KETONES URINE NEGATIVE (NEGATIVE); LEUKOCYTE ESTERASE URINE NEGATIVE (NEGATIVE); NITRITE URINE NEGATIVE (NEGATIVE); OCCULT BLOOD URINE 1+ (NEGATIVE); PH URINE 5.5 (4.5-8.0); PROTEIN URINE NEGATIVE (NEGATIVE); SPECIFIC GRAVITY URINE 1.008 (1.005-1.030); UROBILINOGEN URINE 0.2 E.U./dL (0.2-1.0)
[2020-08-20] MEDS ORDERED: METO-293 PO (09:17)
[2020-08-20] MEDS ORDERED: TOPUD PO (09:17)
[2020-08-20 10:28] VITALS: BP 134/66
== END 2020-08-20 10:44 | disposition home or self-care (01) ==
LOC: ER 07:20
DX: R51.9 Headache, unspecified (principal); I13.0 Hypertensive heart and chronic kidney disease with heart failure and stage 1 through stage 4 chronic kidney disease, or unspecified chronic kidney disease; N18.9 Chronic kidney disease, unspecified; I50.9 Heart failure, unspecified; J44.9 Chronic obstructive pulmonary disease, unspecified; I25.10 Atherosclerotic heart disease of native coronary artery without angina pectoris; J45.909 Unspecified asthma, uncomplicated; Z86.73 Personal history of transient ischemic attack (TIA), and cerebral infarction without residual deficits; Z88.6 Allergy status to analgesic agent; Z91.041 Radiographic dye allergy status; Z91.010 Allergy to peanuts; Z88.0 Allergy status to penicillin; Z91.018 Allergy to other foods; Z91.013 Allergy to seafood; Z88.5 Allergy status to narcotic agent
CPT/HCPCS: 36415; 71045; 80053; 81003; 85025; 93005; 96361; 96374; 96375; 99285; J1885; J2765; J7030

== ENCOUNTER 2020-12-15 14:23 | Emergency (ER) | payer MEDICARE, MEDICAID ==
[~2020-12-15] VITALS: Ht 167.6 cm; Wt 82.0 kg
[~2020-12-15 14:23] MED LIST changes: +METO-293 PO; +TOPUD PO
[2020-12-15] MEDS ORDERED: LIDOCAINE HCL/EPINEPHRINE 1%-EPI 1:100,000 20 ML VIAL INFIL ONE (15:15)
[2020-12-15] MEDS ORDERED: CLIN300C12 MT (17:03)
[2020-12-15 18:00] VITALS: BP 156/76
[2020-12-19 04:07] LABS: NEISSERIA GONORRHOEAE NAA Negative (Negative)
== END 2020-12-15 19:15 | disposition home or self-care (01) ==
LOC: ER 14:23
DX: N75.1 Abscess of Bartholin's gland (principal); I13.0 Hypertensive heart and chronic kidney disease with heart failure and stage 1 through stage 4 chronic kidney disease, or unspecified chronic kidney disease; N18.9 Chronic kidney disease, unspecified; I50.9 Heart failure, unspecified; E05.90 Thyrotoxicosis, unspecified without thyrotoxic crisis or storm; J44.9 Chronic obstructive pulmonary disease, unspecified; J45.909 Unspecified asthma, uncomplicated; M19.90 Unspecified osteoarthritis, unspecified site; K40.90 Unilateral inguinal hernia, without obstruction or gangrene, not specified as recurrent; Z98.890 Other specified postprocedural states; Z88.6 Allergy status to analgesic agent; Z88.1 Allergy status to other antibiotic agents; Z88.5 Allergy status to narcotic agent; Z91.010 Allergy to peanuts; Z88.0 Allergy status to penicillin; Z91.018 Allergy to other foods
CPT/HCPCS: 87070; 87205; 87491; 87591; 99283; J3490

== ENCOUNTER 2021-06-28 11:48 | Emergency (ER) | payer OTHER, MEDICAID ==
[~2021-06-28] VITALS: Ht 162.6 cm; Wt 63.0 kg
[~2021-06-28 11:48] MED LIST changes: +CLIN300C12 MT; +MECL-217 MT
[2021-06-28 13:07] LABS: BASOPHILS % 0.9 % (0.0-2.0); HEMATOCRIT. 30.4 % (36.0-48.0); HEMOGLOBIN. 10.4 g/dL (12.0-16.0); LYMPHOCYTES % 25.2 % (20.0-50.0); MEAN CORPUSCULAR HEMOGLOBIN 38.4 pg (28.0-32.0); MEAN PLATELET VOLUME 7.3 fl (7.4-10.4); MONOCYTES % 8.7 % (2.0-8.0); NEUTROPHILS % 64.2 % (40.0-76.0); PLATELET 282 x1000/uL (130-400); RED BLOOD CELL COUNT 2.72 mill/uL (4.2-5.4); RED CELL DISTRIBUTION WIDTH 15.1 % (11.6-14.6)
[2021-06-28 13:13] LABS: CHLORIDE 103 mEq/L (98-107)
[2021-06-28 13:38] LABS: CLARITY URINE CLEAR (CLEAR); COLOR URINE YELLOW (YELLOW); KETONES URINE NEGATIVE (NEGATIVE); LEUKOCYTE ESTERASE URINE TRACE (NEGATIVE); NITRITE URINE NEGATIVE (NEGATIVE); OCCULT BLOOD URINE NEGATIVE (NEGATIVE); PROTEIN URINE NEGATIVE (NEGATIVE); SPECIFIC GRAVITY URINE 1.009 (1.005-1.030); UROBILINOGEN URINE 0.2 E.U./dL (0.2-1.0)
[2021-06-28 13:56] LABS: PLATELET ESTIMATE NORMAL
[2021-06-28] MEDS ORDERED: ACETAMINOPHEN 325MG TABLET PO ONE (17:00)
[2021-06-28] MEDS ORDERED: CEFTRIAXONE 1 G PREMIX 50 ML IV ONE (17:30)
[2021-06-28] MEDS ORDERED: ASPIRIN 325MG EC TABLET PO NR ×2 (19:15→19:45)
[2021-06-28 20:45] VITALS: BP 147/72
== END 2021-06-28 21:15 | disposition short-term general hospital (02) ==
LOC: ER 11:48
DX: R51.9 Headache, unspecified (principal); R07.89 Other chest pain; I11.0 Hypertensive heart disease with heart failure; I50.9 Heart failure, unspecified; E78.00 Pure hypercholesterolemia, unspecified; Z20.822 Contact with and (suspected) exposure to COVID-19; Z88.6 Allergy status to analgesic agent; Z88.8 Allergy status to other drugs, medicaments and biological substances; Z88.0 Allergy status to penicillin; Z88.2 Allergy status to sulfonamides; Z88.3 Allergy status to other anti-infective agents; Z79.899 Other long term (current) drug therapy; Z86.73 Personal history of transient ischemic attack (TIA), and cerebral infarction without residual deficits
CPT/HCPCS: 36415; 70450; 71045; 80053; 81003; 83690; 83880; 84484; 85025; 87086; 87426; 96365; 99285; J0696

== ENCOUNTER 2022-01-17 16:29 | Emergency (ER) | payer OTHER ==
[~2022-01-17] VITALS: Ht 165.1 cm; Wt 68.0 kg
[~2022-01-17 16:29] MED LIST changes: +CLIN-194 MT; -CLIN300C12 MT
[2022-01-17] MEDS ORDERED: ACETAMINOPHEN 325MG TABLET PO ONE (19:00)
[2022-01-17] MEDS ORDERED: ACETAMINOPHEN 325MG TABLET PO NR (19:00)
[2022-01-17] MEDS ORDERED: CLOPIDOGREL 75MG TABLET PO ONE (19:00)
[2022-01-17] MEDS ORDERED: CLOPIDOGREL 75MG TABLET PO NR (19:00)
[2022-01-17 19:21] LABS: BASOPHILS % 0.2 % (0.0-2.0); EOSINOPHILS % 0.7 % (0.0-5.0); HEMATOCRIT. 30.6 % (36.0-48.0); HEMOGLOBIN. 10.4 g/dL (12.0-16.0); LYMPHOCYTES % 17.4 % (20.0-50.0); MEAN CORPUSCULAR HEMOGLOBIN 37.5 pg (28.0-32.0); MEAN CORPUSCULAR VOLUME 110.3 fL (81.0-99.0); MEAN PLATELET VOLUME 6.8 fl (7.4-10.4); MONOCYTES % 9.7 % (2.0-8.0); PLATELET 249 x1000/uL (130-400); RED BLOOD CELL COUNT 2.77 mill/uL (4.2-5.4); RED CELL DISTRIBUTION WIDTH 17.3 % (11.6-14.6)
[2022-01-17 19:26] LABS: CHLORIDE 98 mEq/L (98-107)
[2022-01-17 19:34] LABS: D-DIMER 1.52 mg/L FEU (<0.50); INR 1.1; PARTIAL THROMBOPLASTIN TIME 25.4 sec (23.4-31.0); PROTHROMBIN TIME 11.6 sec (9.6-11.0)
[2022-01-17 20:16] LABS: PLATELET ESTIMATE NORMAL
[2022-01-17] MEDS ORDERED: ENOXAPARIN 80MG/0.8ML SYR SUBCUT ONE (21:15)
[2022-01-18 03:15] VITALS: BP 151/56
== END 2022-01-18 03:47 | disposition short-term general hospital (02) ==
LOC: ER 16:29 → CANBEDREQ 01-19 11:25
DX: R07.9 Chest pain, unspecified (principal); I13.0 Hypertensive heart and chronic kidney disease with heart failure and stage 1 through stage 4 chronic kidney disease, or unspecified chronic kidney disease; N18.9 Chronic kidney disease, unspecified; I50.9 Heart failure, unspecified; I25.2 Old myocardial infarction; J45.909 Unspecified asthma, uncomplicated; J44.9 Chronic obstructive pulmonary disease, unspecified; E78.00 Pure hypercholesterolemia, unspecified; Z20.822 Contact with and (suspected) exposure to COVID-19; Z88.0 Allergy status to penicillin; Z88.2 Allergy status to sulfonamides; Z88.3 Allergy status to other anti-infective agents; Z88.4 Allergy status to anesthetic agent; Z88.6 Allergy status to analgesic agent; Z88.8 Allergy status to other drugs, medicaments and biological substances; Z86.73 Personal history of transient ischemic attack (TIA), and cerebral infarction without residual deficits; Z91.010 Allergy to peanuts; Z91.013 Allergy to seafood; Z91.014 Allergy to mammalian meats; Z91.048 Other nonmedicinal substance allergy status; Z91.018 Allergy to other foods
CPT/HCPCS: 36415; 71045; 78582; 80053; 83880; 84484; 85025; 85379; 85610; 85730; 87426; 93005; 93970; 96372; 99285; A9540; A9558; C9803; J1650

== ENCOUNTER 2022-01-20 06:06 | Emergency (ER) | payer OTHER, MEDICAID ==
[~2022-01-20] VITALS: Ht 167.6 cm; Wt 68.0 kg
[2022-01-20] MEDS ORDERED: ACETAMINOPHEN 325MG TABLET PO STA (08:40)
[2022-01-20 11:13] LABS: BASOPHILS % 0.3 % (0.0-2.0); EOSINOPHILS % 1.4 % (0.0-5.0); HEMATOCRIT. 27.2 % (36.0-48.0); HEMOGLOBIN. 9.5 g/dL (12.0-16.0); LYMPHOCYTES % 23.1 % (20.0-50.0); MEAN CORPUSCULAR HEMOGLOBIN 38.5 pg (28.0-32.0); MEAN CORPUSCULAR VOLUME 110.3 fL (81.0-99.0); MEAN PLATELET VOLUME 7.2 fl (7.4-10.4); MONOCYTES % 11.7 % (2.0-8.0); NEUTROPHILS % 63.5 % (40.0-76.0); PLATELET 261 x1000/uL (130-400); RED BLOOD CELL COUNT 2.46 mill/uL (4.2-5.4); RED CELL DISTRIBUTION WIDTH 16.5 % (11.6-14.6)
[2022-01-20 11:40] LABS: CHLORIDE 100 mEq/L (98-107)
[2022-01-20] MEDS ORDERED: ONDANSETRON HCL 4MG/2ML INJ IV ONE (11:45)
[2022-01-20 12:11] LABS: PLATELET ESTIMATE NORMAL
[2022-01-20 19:45] VITALS: BP 150/64
== END 2022-01-20 19:46 | disposition short-term general hospital (02) ==
LOC: ER 06:19 → CANBEDREQ 01-22 07:17
DX: R55 Syncope and collapse (principal); R51.9 Headache, unspecified; R11.2 Nausea with vomiting, unspecified; J44.9 Chronic obstructive pulmonary disease, unspecified; Z20.822 Contact with and (suspected) exposure to COVID-19; Z88.6 Allergy status to analgesic agent; Z91.041 Radiographic dye allergy status; Z88.5 Allergy status to narcotic agent; Z91.010 Allergy to peanuts; Z91.013 Allergy to seafood; Z91.018 Allergy to other foods; Z88.0 Allergy status to penicillin
CPT/HCPCS: 36415; 70450; 71045; 80053; 83880; 84484; 85025; 87426; 93005; 96374; 99285; C9803; J2405

== ENCOUNTER 2022-03-31 12:03 | Emergency (ER) | payer OTHER ==
[~2022-03-31] VITALS: Ht 154.9 cm; Wt 73.0 kg
[2022-03-31] MEDS: SODIUM CHLORIDE 0.9% 1,000 ML IV ONE (12:52)
[2022-03-31 14:57] LABS: BASOPHILS % 0.5 % (0.0-2.0); EOSINOPHILS % 1.3 % (0.0-5.0); HEMATOCRIT. 29.4 % (36.0-48.0); HEMOGLOBIN. 10.1 g/dL (12.0-16.0); LYMPHOCYTES % 23.1 % (20.0-50.0); MEAN CORPUSCULAR HEMOGLOBIN 35.9 pg (28.0-32.0); MEAN CORPUSCULAR VOLUME 104.2 fL (81.0-99.0); MEAN PLATELET VOLUME 6.7 fl (7.4-10.4); NEUTROPHILS % 63.1 % (40.0-76.0); PLATELET 322 x1000/uL (130-400); RED BLOOD CELL COUNT 2.82 mill/uL (4.2-5.4); RED CELL DISTRIBUTION WIDTH 12.6 % (11.6-14.6)
[2022-03-31 15:05] LABS: CHLORIDE 103 mEq/L (98-107)
[2022-03-31 15:17] LABS: CREATINE KINASE 226 IU/L (26-192)
[2022-03-31] MEDS ORDERED: ASPIRIN 81MG TABLET PO ONE (16:00)
[2022-03-31 18:00] VITALS: BP 158/58
== END 2022-03-31 18:40 | disposition short-term general hospital (02) ==
LOC: ER 12:03 → CANBEDREQ 04-01 03:47
DX: R55 Syncope and collapse (principal); R53.1 Weakness; Z20.822 Contact with and (suspected) exposure to COVID-19; J44.9 Chronic obstructive pulmonary disease, unspecified; I10 Essential (primary) hypertension; Z79.899 Other long term (current) drug therapy
CPT/HCPCS: 36415; 71045; 80053; 82550; 83605; 83880; 84484; 85025; 87040; 87426; 93005; 96360; 99285; C9803; J7030

== ENCOUNTER 2024-04-04 02:55 | Emergency (ER) | payer OTHER ==
[~2024-04-04] VITALS: Ht 165.1 cm; Wt 69.0 kg
[~2024-04-04 02:55] MED LIST changes: +DOCU-405 PO; -DOCU250C69 PO; -EZET10TA13 PO; +EZET10TA81 PO
[2024-04-04 03:13] VITALS: O2SAT 98
[2024-04-04 03:37] LABS: BASOPHILS % 1.2 % (0.0-2.0); DIFFERENTIAL COMMENT 0; EOSINOPHILS % 3.3 % (0.0-5.0); HEMATOCRIT. 30.2 % (36.0-48.0); HEMOGLOBIN. 10.4 g/dL (12.0-16.0); LYMPHOCYTES % 41.8 % (20.0-50.0); MEAN CORPUSCULAR HEMOGLOBIN 35.6 pg (28.0-32.0); MEAN CORPUSCULAR HGB CONC 34.3 g/dL (31.0-37.0); MEAN CORPUSCULAR VOLUME 103.7 fL (81.0-99.0); MEAN PLATELET VOLUME 7.7 fl (7.4-10.4); MONOCYTES % 11.9 % (2.0-8.0); NEUTROPHILS % 41.8 % (40.0-76.0); PLATELET 229 x1000/uL (130-400); RED BLOOD CELL COUNT 2.92 mill/uL (4.2-5.4); RED CELL DISTRIBUTION WIDTH 13.2 % (11.6-14.6); WHITE BLOOD COUNT 3.1 x1000/uL (4.5-11.0)
[2024-04-04 03:40] LABS: CHLORIDE 107 mEq/L (98-107); POTASSIUM 3.7 mEq/L (3.5-5.1); SODIUM 139 mEq/L (136-145)
[2024-04-04 03:41] LABS: CARBON DIOXIDE 26 mEq/L (21-32)
[2024-04-04 03:42] LABS: CALCIUM 8.6 mg/dL (8.7-10.4)
[2024-04-04 03:52] LABS: CREATININE 0.9 mg/dL (0.6-1.0); GLUCOSE 100 mg/dL (70-105); TROPONIN I HIGH SENSITIVITY 10 ng/L (3.0-34); UREA NITROGEN BLOOD 6 mg/dL (9-23)
[2024-04-04 03:56] LABS: PARTIAL THROMBOPLASTIN TIME 25.7 sec (23.4-31.0); PROTHROMBIN TIME 11.5 sec (9.6-11.0)
[2024-04-04 04:10] LABS: CLARITY URINE CLEAR (CLEAR); COLOR URINE YELLOW (YELLOW); GLUCOSE URINE NEGATIVE (NEGATIVE); KETONES URINE NEGATIVE (NEGATIVE); LEUKOCYTE ESTERASE URINE NEGATIVE (NEGATIVE); NITRITE URINE NEGATIVE (NEGATIVE); OCCULT BLOOD URINE NEGATIVE (NEGATIVE); PROTEIN URINE NEGATIVE (NEGATIVE); SPECIFIC GRAVITY URINE 1.004 (1.005-1.030); UROBILINOGEN URINE 0.2 E.U./dL (0.2-1.0)
[2024-04-04 04:25] LABS: *AMPHETAMINES SCREEN URINE NEGATIVE (NEGATIVE); *BARBITURATES SCREEN URINE NEGATIVE (NEGATIVE); *BENZODIAZEPINES SCREEN URINE NEGATIVE (NEGATIVE); *COCAINE SCREEN URINE NEGATIVE (NEGATIVE); METHADONE URINE SCREEN NEGATIVE (NEGATIVE); OPIATES URINE SCREEN NEGATIVE (NEGATIVE)
[2024-04-04 04:26] LABS: CANNABINOID URINE SCREEN NEGATIVE (NEGATIVE); ECSTASY MDMA SCREEN URINE NEGATIVE (NEGATIVE); PHENCYCLIDINE URINE SCREEN NEGATIVE (NEGATIVE)
[2024-04-04] MEDS ORDERED: SODIUM CHLORIDE 0.9% 500 ML IV ONE (06:30)
[2024-04-04 08:28] VITALS: BP 172/77; PULSE 67; RESP 16; TEMP 37.16964; O2SAT 100
[2024-04-04 08:47] LABS: ETHANOL BLOOD < 10 mg/dL (<10)
== END 2024-04-04 09:24 | disposition short-term general hospital (02) ==
LOC: ER 03:16
DX: R55 Syncope and collapse (principal); R29.6 Repeated falls; R62.7 Adult failure to thrive; I11.0 Hypertensive heart disease with heart failure; D64.9 Anemia, unspecified; I25.2 Old myocardial infarction; I50.9 Heart failure, unspecified; J44.89 Other specified chronic obstructive pulmonary disease; Z88.8 Allergy status to other drugs, medicaments and biological substances; Z88.6 Allergy status to analgesic agent; Z88.5 Allergy status to narcotic agent; Z88.2 Allergy status to sulfonamides; Z88.1 Allergy status to other antibiotic agents; Z88.0 Allergy status to penicillin; Z86.73 Personal history of transient ischemic attack (TIA), and cerebral infarction without residual deficits; Z79.899 Other long term (current) drug therapy
CPT/HCPCS: 36415; 71045; 80048; 80305; 80320; 81003; 83880; 84484; 85025; 93005; 99285; G0480

== ENCOUNTER 2024-04-04 23:23 | Emergency (ER) | payer OTHER, MEDICAID ==
[~2024-04-04] VITALS: Ht 170.2 cm; Wt 68.0 kg
[2024-04-04 23:26] VITALS: TEMP 98.5; O2SAT 98
[2024-04-05 00:08] LABS: BASOPHILS % 0.4 % (0.0-2.0); DIFFERENTIAL COMMENT 0; EOSINOPHILS % 2.2 % (0.0-5.0); HEMATOCRIT. 30.1 % (36.0-48.0); HEMOGLOBIN. 10.3 g/dL (12.0-16.0); MEAN CORPUSCULAR HEMOGLOBIN 35.3 pg (28.0-32.0); MEAN CORPUSCULAR HGB CONC 34.3 g/dL (31.0-37.0); MEAN CORPUSCULAR VOLUME 102.8 fL (81.0-99.0); MEAN PLATELET VOLUME 7.4 fl (7.4-10.4); MONOCYTES % 10.8 % (2.0-8.0); NEUTROPHILS % 52.6 % (40.0-76.0); PLATELET 246 x1000/uL (130-400); RED BLOOD CELL COUNT 2.92 mill/uL (4.2-5.4); RED CELL DISTRIBUTION WIDTH 13.2 % (11.6-14.6); WHITE BLOOD COUNT 3.8 x1000/uL (4.5-11.0)
[2024-04-05 00:18] LABS: CHLORIDE 104 mEq/L (98-107); POTASSIUM 3.1 mEq/L (3.5-5.1); SODIUM 138 mEq/L (136-145)
[2024-04-05 00:19] LABS: CALCIUM 8.6 mg/dL (8.7-10.4); CARBON DIOXIDE 27 mEq/L (21-32)
[2024-04-05 00:24] LABS: GLUCOSE 107 mg/dL (70-105); UREA NITROGEN BLOOD 7 mg/dL (9-23)
[2024-04-05 00:25] LABS: TROPONIN I HIGH SENSITIVITY 13 ng/L (3.0-34)
[2024-04-05] MEDS: SODIUM CHLORIDE 0.9% 500 ML IV ONE (01:53)
[2024-04-05] MEDS: POTASSIUM CHLORIDE 20MEQ/PACKET PO NR (02:05)
[2024-04-05 02:09] LABS: TROPONIN I HIGH SENSITIVITY 15 ng/L (3.0-34)
[2024-04-05 04:57] VITALS: BP 160/61; PULSE 80; RESP 16; O2SAT 100
== END 2024-04-05 06:00 | disposition short-term general hospital (02) ==
LOC: ER 23:23
DX: R55 Syncope and collapse (principal); R07.89 Other chest pain; I11.0 Hypertensive heart disease with heart failure; I50.9 Heart failure, unspecified; E78.00 Pure hypercholesterolemia, unspecified; J44.9 Chronic obstructive pulmonary disease, unspecified; Z86.73 Personal history of transient ischemic attack (TIA), and cerebral infarction without residual deficits; Z88.0 Allergy status to penicillin; Z88.1 Allergy status to other antibiotic agents; Z88.2 Allergy status to sulfonamides; Z88.5 Allergy status to narcotic agent; Z88.6 Allergy status to analgesic agent; Z88.8 Allergy status to other drugs, medicaments and biological substances; Z79.899 Other long term (current) drug therapy
CPT/HCPCS: 36415; 71045; 80048; 84484; 85025; 96360; 96361; 99285

== ENCOUNTER 2024-04-15 03:01 | Emergency (ER) | payer OTHER, MEDICAID ==
[~2024-04-15] VITALS: Ht 167.6 cm; Wt 62.0 kg
[2024-04-15 03:19] VITALS: TEMP 98; O2SAT 97
[2024-04-15 03:26] LABS: DIFFERENTIAL COMMENT 0; EOSINOPHILS % 5.2 % (0.0-5.0); HEMATOCRIT. 27.3 % (36.0-48.0); HEMOGLOBIN. 9.2 g/dL (12.0-16.0); LYMPHOCYTES % 35.8 % (20.0-50.0); MEAN CORPUSCULAR HEMOGLOBIN 35.1 pg (28.0-32.0); MEAN CORPUSCULAR HGB CONC 33.8 g/dL (31.0-37.0); MEAN CORPUSCULAR VOLUME 103.8 fL (81.0-99.0); MEAN PLATELET VOLUME 6.5 fl (7.4-10.4); MONOCYTES % 13.4 % (2.0-8.0); NEUTROPHILS % 44.6 % (40.0-76.0); PLATELET 430 x1000/uL (130-400); RED BLOOD CELL COUNT 2.63 mill/uL (4.2-5.4); RED CELL DISTRIBUTION WIDTH 13.3 % (11.6-14.6); WHITE BLOOD COUNT 3.6 x1000/uL (4.5-11.0)
[2024-04-15 03:30] LABS: CHLORIDE 105 mEq/L (98-107); POTASSIUM 3.6 mEq/L (3.5-5.1); SODIUM 134 mEq/L (136-145)
[2024-04-15 03:31] LABS: CARBON DIOXIDE 25 mEq/L (21-32)
[2024-04-15 03:32] LABS: CALCIUM 8.7 mg/dL (8.7-10.4)
[2024-04-15 03:36] LABS: CREATININE 0.9 mg/dL (0.6-1.0); GLUCOSE 103 mg/dL (70-105); UREA NITROGEN BLOOD 6 mg/dL (9-23)
[2024-04-15] MEDS: ACETAMINOPHEN 325MG TABLET PO NR (05:47)
[2024-04-15] MEDS: HYDRALAZINE HCL 10MG TABLET PO NR (05:47)
[2024-04-15] MEDS: TRAMADOL 50MG TABLET PO NR (05:48)
[2024-04-15 06:55] VITALS: BP 148/66; PULSE 68; RESP 20; O2SAT 100
== END 2024-04-15 07:22 | disposition short-term general hospital (02) ==
LOC: ER 03:01
DX: R51.9 Headache, unspecified (principal); I11.0 Hypertensive heart disease with heart failure; J44.89 Other specified chronic obstructive pulmonary disease; E78.00 Pure hypercholesterolemia, unspecified; I50.9 Heart failure, unspecified; I25.2 Old myocardial infarction; Z86.73 Personal history of transient ischemic attack (TIA), and cerebral infarction without residual deficits; Z79.899 Other long term (current) drug therapy; Z88.0 Allergy status to penicillin; Z88.1 Allergy status to other antibiotic agents; Z88.2 Allergy status to sulfonamides; Z88.5 Allergy status to narcotic agent; Z88.6 Allergy status to analgesic agent; Z88.8 Allergy status to other drugs, medicaments and biological substances
CPT/HCPCS: 36415; 80048; 85025; 99285